=== PATIENT | male | born 1940 | race Caucasian/White ===

== ENCOUNTER → 2017-10-21 07:59 | Outpatient (CLI) | payer MEDICARE, SELFPAY ==
--- NOTE | 2017-10-21 08:02 | CDU_ITS ---
Reason For Study: CAROTID ARTERY DISEASE Rt. Velocities/BP Lt. Velocities/BP Prox CCA 67/15 cm/sec. Prox CCA 114/23 cm/sec. Mid CCA 63/19 cm/sec. Mid CCA 69/20 cm/sec. Dist CCA 63/15 cm/sec. Dist CCA 69/23 cm/sec. Prox ICA 84/32 cm/sec. Prox ICA 66/23 cm/sec. Mid ICA 101/40 cm/sec. Mid ICA 73/27 cm/sec. Dist ICA 56/17 cm/sec. Dist ICA 44/13 cm/sec. Rt. ICA/CCA = 1.6. Lt. ICA/CCA = 1.06. Prox ECA 88/16 cm/sec. Prox ECA 77/16 cm/sec. Rt. Vert. 43/18 cm/sec. Lt. Vert. 51/18 cm/sec. Right Extracranial There is intimal thickening but no significant atherosclerotic plaque noted in the right common carotid artery. The right internal carotid artery is very tortuous. The distal right internal carotid artery is not well visualized. The tortuous nature of the right internal carotid artery may result in flow velocities overestimating the degree of stenosis. There is no significant atherosclerotic plaque noted in the right external carotid artery. Antegrade flow is noted in the right vertebral artery. There is homogeneous, smooth atherosclerotic plaque noted in the right bulb. Left Extracranial There is intimal thickening but no significant atherosclerotic plaque noted in the left common carotid artery. The left internal carotid artery is very tortuous. The distal left internal carotid artery is not well visualized. There is no significant atherosclerotic plaque noted in the left external carotid artery. Antegrade flow is noted in the left vertebral artery. There is heterogeneous, irregular atherosclerotic plaque noted in the left bulb. Procedure Carotid Duplex 66113. Exam performed in department. Interpretation Summary Mild (<50%) stenosis right extracranial internal carotid. Mild (<50%) stenosis left extracranial internal carotid. Flow within the vertebral arteries is antegrade bilaterally. Ordering Physician: Ana Tello Performed By: Kirstie Corbett, [place], RVT
== END ==
PROVIDERS: Family Provider Internal Medicine; PCP Internal Medicine; Visit Provider Internal Medicine
DX: I65.23 Occlusion and stenosis of bilateral carotid arteries (principal)
CPT/HCPCS: 93880

== ENCOUNTER → 2018-05-12 13:01 | Outpatient (CLI) | payer SELFPAY ==
--- NOTE | 2018-05-12 13:06 | CT_ITS ---
HISTORY: Hyperlipidemia. CT chest over-read only for calcium scoring. TECHNIQUE: Helically acquired images were obtained of the chest. CT coronary artery calcium scoring performed. A radiation dose optimization technique was used for this scan. IV Contrast dosage and agent: None. COMPARISON: None FINDINGS: CT coronary artery calcium scoring performed as follows: Left main 81.9 LAD 115 Left circumflex 10.9 Right coronary artery 0 Total calcium score of 208, moderate plaque burden Limited visualization of the lung parenchyma. Lateral segment right middle lobe 5 mm pleural-based nodule or fibronodular scar. More inferiorly, right middle lobe mild pleural-parenchymal scarring. Bilateral lower lobe mild bronchiectasis. Cluster of precarinal lymph nodes including a borderline enlarged left measuring 1 cm in the short axis CT/Limited Chest CT w/CCTA IMPRESSION: 1. Total calcium score of 208 representing moderate coronary artery plaque burden. 2. Right middle lobe 5 mm pleural-based nodule or fibronodular scar. 3. Chronic lung disease with mild bronchiectasis and right middle lobe mild scarring. 4. Borderline enlarged precarinal lymph. 5. Formal CT chest recommended to serve as a baseline for future reference. Individualized dose optimization techniques were used for this CT. at 0707 Reported and signed by: Gautam Hatch MD Electronically Signed: Gautam Hatch, at 7:06 EST Tel , Service support ,
[2018-05-12 13:16] VITALS: BP 111/53; PULSE 63; RESP 16; O2SAT 97; BMI 26.8
--- NOTE | 2018-05-13 10:01 | CA.SCORE ---
Calcium Scoring Date of Study:: 05/12/18 Coronary Calcium Scoring: Calcium score: Left main: 81.9 Left anterior descendin Left circumflex: 10.9 Right coronary artery: 0 Total Agatston Score: 208 Conclusion: The total calcium score (208) is between the 25th and 50th percentile for men over the age of 74. (Exact percentile calculated to be 27%; this means 26% of the population is a lower calcium score and 73% of the population has a higher calcium score than this patient) Impression: Impression: Calcium score of 208 falls between a calcium score 101?400, indicating moderate plaque burden. According to this range, the patient is highly likely to have moderate nonobstructive coronary artery disease. A full evaluation of cardiac risk should include an assessment of all conventional risk factors, and the scores and percentile ranking is reported herein should be evaluated in this context. Recommend clinical correlation or alternative mode of testing if coronary occlusive disease or coronary ischemia is strongly suspected.
== END ==
PROVIDERS: Family Provider Internal Medicine; PCP Internal Medicine; Referring Provider Internal Medicine; Visit Provider Internal Medicine
DX: E78.5 Hyperlipidemia, unspecified (principal)
CPT/HCPCS: 75571; 76380

== ENCOUNTER → 2018-07-29 14:35 | Outpatient (CLI) | payer MEDICARE, SELFPAY ==
[2018-05-12 13:16] VITALS: BMI 26.8
--- NOTE | 2018-07-29 14:40 | RAD_ITS ---
STUDY: X-RAY - LEFT KNEE REASON FOR EXAM: Male, 78 years old. Pain TECHNIQUE: 4 view(s) of the knee. COMPARISON: None. FINDINGS: Normal visualized distal femur. Normal visualized proximal tibia and fibula. Normal proximal tibiofibular articulation. There is mild degenerative arthrosis of the medial femorotibial compartment. Normal lateral femorotibial compartment. There is moderate degenerative arthrosis of the patellofemoral articulation. The soft tissue structures are unremarkable. RAD/Knee 4 or More Views IMPRESSION: Degenerative arthrosis. Electronically Signed: Adarsh Villasenor MD at 15:30 EDT , Service support ,
== END ==
PROVIDERS: Family Provider Internal Medicine; PCP Internal Medicine; Referring Provider Internal Medicine; Visit Provider Internal Medicine
DX: M25.562 Pain in left knee (principal)
CPT/HCPCS: 73564

== ENCOUNTER 2018-08-04 07:51 | Outpatient (RCR) | payer MEDICARE, SELFPAY ==
[2018-05-12 13:16] VITALS: BMI 26.8
--- NOTE | 2018-08-04 08:55 | HP.PTEVAL_ITS ---
Patient's Visit Information CASSIE CHAVIRA is a 78 year old M referred to Physical Therapy by Ana Tello MD with a diagnosis of LEFT KNEE PAIN. Date of Evaluation: 08/04/18 Physical Therapist: Zach Hodges PT, Cert MDT, OCS - Visit Plan Frequency: 1 VISIT Plan: PT EVAL ONLY FOR HEP AND GYM EXERCISES - Subjective Findings: This 78 y/o male presents to physical therapy with left knee pain. Patient has had left knee pain one year intermiitant. Patient had x-rays showed DJD. Patient hseen DR provided MEDS. Symptoms getting better. Aggraveting symptoms with difficulty squatting,stairs,kneeling.Alleviating factors MEDS. Occassionally ,affects sleep. Patient denies parathesia/tingling. Patient symptoms affect ADL'S and housework/job demands. SOCAIL: . VOCATION: retired - Pain Left Knee Pain Intensity (Out of 10): 2 Pain Intensity Range: 10 - Objective POSTURE: WFL. NEURO: intact. PALPATION: superior patella. EDEMA: absent. AROM: 0-145 supine knee flexion. MMT: quads/hams 4/5,hip 4-/5 ,ankle 5/5. FLEXABILITY: hams min tight - Special Tests L Knee Christiano - Meniscus: Negative L Knee Apley - Meniscus: Negative L Knee Disco Test - Meniscus: Negative L Knee Posterior Drawer - PCL: Negative L Knee Posterior Sag - PCL: Negative L Knee Patellar Apprehension - PFS: Positive L Knee Patellar Grind - PFS: Positive - Goals Goal 1:: Patient as providedd with HEP and appropriate exercises in the gym. - Rehabilitation Potential Physical Therapy Diagnosis: This patient has patellafemoral OA with pain with kneeling,dep squats ,catches in open chain postition. Rehabilitation Potential: Good - Anticipated Interventions Patient/Client Instruction: Educate patient on: Condition For the Purpose of:: To decrease pain, To improve muscle performance and motor f unction, To improve ability to perform ADL's, To increase tolerance to activity/condition/position, To improve ability of physical actions for home/community/work/leisure Other: HEP Therapeutic Exercise to Include: Strength training Comment: HEP KNEE For the Purpose of:: To improve muscle performance and motor function, To increase tolerance to activity/condition/position, To improve ability of physical actions for home/community/work/leisure Thank you for the opportunity to evaluate your patient. For Medicare and Medicare HMO plans, please review the plan of care and approve it. It will need to be FAXED BACK to us at [phone] for Medicare purposes. For Medicare only, by signing this I certify the plan of care. Please let me know if there are questions or concerns regarding this plan of care. Physician Signature: Date:
== END 2018-08-04 19:00 | disposition home or self-care (01) ==
LOC: PT 07:51
PROVIDERS: Family Provider Internal Medicine; PCP Internal Medicine; Referring Provider Internal Medicine; Visit Provider Internal Medicine
DX: M25.562 Pain in left knee (principal)
CPT/HCPCS: 97110; 97162

== ENCOUNTER 2020-05-03 09:03 | Outpatient (RCR) | payer MEDICARE, SELFPAY ==
[2018-05-12 13:16] VITALS: BMI 26.8
== END 2020-05-03 23:59 ==
LOC: IMMUN 09:03
PROVIDERS: PCP Internal Medicine; Visit Provider Family Medicine
DX: Z23 Encounter for immunization (principal)
CPT/HCPCS: 0011A; 0012A; 91301

== ENCOUNTER → 2021-02-11 12:57 | Outpatient (CLI) | payer MEDICARE, SELFPAY ==
--- NOTE | 2021-02-11 13:02 | RAD_ITS ---
STUDY: X-RAY BONE SURVEY COMPLETE REASON FOR EXAM: Male, 80 years old. MGUS R/U MYELOMA TECHNIQUE: One view of the pelvis was obtained. 2 views of the cervical spine were obtained. 2 views of the thoracic spine were obtained. 2 views of the lumbar spine were obtained. views of the femur. views of the humerus. : views of the skull were obtained. COMPARISON: None. FINDINGS: CHEST: The lungs are clear and expanded. There is no demonstrated pleural abnormality. Normal size heart. Normal mediastinum and heidi. Normal visualized pulmonary arteries. Normal visualized aortic arch and descending thoracic aorta. Normal visualized thoracic spine. Normal visualized ribs, clavicles, and shoulders. There is no demonstrated abnormality of the visualized soft tissue structures of the upper abdomen. PELVIS: There is a non-specific bowel gas pattern. Normal visualized soft tissue structures. Normal bilateral iliac wings, sacroiliac joints and visualized sacrum. Normal visualized bilateral superior and inferior pubic rami. Normal pubic symphysis. Normal ischial tuberosities. Normal visualized right femoral head. Normal right acetabulum. Normal right hip joint. Normal visualized left femoral head. Normal left acetabulum. Normal left hip joint. CERVICAL SPINE: Normal anterior atlantoaxial articulation. Normal odontoid process. Normal cervical lordosis. There is multi-level endplate spondylosis. There is multi-level degenerative disc disease with multilevel disc space narrowing. Normal visualized intervertebral neuroforamina. The soft tissue structures are unremarkable. THORACIC SPINE: Normal kyphosis of the thoracic spine. There is no substantial scoliosis. There is multilevel endplate spondylosis of the thoracic vertebrae. There is multilevel disc space narrowing of the thoracic spine. The soft tissue structures are unremarkable. LUMBAR SPINE: Normal lumbar lordosis. There is no substantial scoliosis. There is a normal alignment of the vertebrae. There is multilevel endplate spondylosis of the lumbar vertebrae. There is multi-level degenerative disc disease with multi-level disc space narrowing. The soft tissue structures are unremarkable. RIGHT FEMUR: Normal visualized femur. Normal visualized soft tissue structure. LEFT FEMUR: Normal visualized femur. Normal visualized soft tissue structure. RIGHT HUMERUS :Normal visualized humerus. There is no demonstrated fracture or osseous destructive process. There is no demonstrated soft tissue abnormality. LEFT HUMERUS:Normal visualized humerus. There is no demonstrated fracture or osseous destructive process. There is no demonstrated soft tissue abnormality. SKULL: There is no demonstrated soft tissue swelling. Normal osseous calvarium. Normal visualized facial bones. Normal visualized paranasal sinuses. RAD/Bone Survey Comp(Axial&Append) IMPRESSION: No radiographic evidence of multiple myeloma. Electronically Signed: Dawson Kwok MD at 16:33 EST Tel , Service support ,
== END ==
PROVIDERS: PCP Internal Medicine; Referring Provider Internal Medicine Hematology & Oncology; Visit Provider Internal Medicine Hematology & Oncology
DX: D47.2 Monoclonal gammopathy (principal)
CPT/HCPCS: 77075

== ENCOUNTER 2021-04-01 13:00 | Outpatient (RCR) | payer MEDICARE, SELFPAY | END 2021-04-05 23:59 | LOC: DC 13:00 | PROVIDERS: PCP Internal Medicine; Visit Provider Internal Medicine | DX: E11.65 Type 2 diabetes mellitus with hyperglycemia (principal) | CPT/HCPCS: 97802; 97803; G0108 ==

== ENCOUNTER 2021-05-13 08:30 | Outpatient (RCR) | payer MEDICARE, SELFPAY ==
--- NOTE | 2021-05-13 10:00 | BH.SGPN.GN ---
Behaviors/Verbalizations/Mental Status: []Eye contact is fair.Motor activity is appropriate. Appearance is casual and grooming tended to. Speech is Appropriate. Mood is anxious. Affect is constricted. Thoughts are linear and logical. No evidence of psychosis Client Response/Progress/Benefit: []Pt was an semi-engaged participant AEB pt being mostly quiet however appeared attentive and provided input when prompted by therapist. Pt appeared attentive AEB taking notes during psychoeducation about cognitive distortions. Pt benefited from education and increased awareness of cognitive distortions and the role that they play on our behaviors and emotions. Shared with group top three distortions personally uses the most includes: shoulds/must, personalization, and disqualifying the positives. Able to connect impact distortions has on his mental health. Will continue IOP tx to stabilize moods, increase healthy coping, improve daily functioning and prevent decompensation.
--- NOTE | 2021-05-13 10:48 | BH.COMM_ITS ---
Communication Note - Communication with Client Communication Note: Met with patient to complete initial paperwork. No sig nificant change since pre-admission screening. Pt reports ambivalence about starting the program due to anxiety about his personal information being shared. Pt reported feeling better after talking with therapist and reviewing the consent forms. Completed [place] Suicide screening. Pt reports history of fleeting suicidal ideations over the last three years that last a few seconds to minutes, but denies ever having intent to act on these thoughts. Denied active SI, plan, or intent this AM. Denies passive thoughts of this AM and in the last month. No access to weapons. Future oriented and protective factors. No previous attempts. Reviewed case with Dr. Saravia with plan to admit to IOP with dx of MDD F 33.2; rule out bipolar disorder NOS.
--- NOTE | 2021-05-13 11:15 | BH.SGPN.GN ---
Behaviors/Verbalizations/Mental Status: []Client alert and oriented, casually dressed and groomed. Eye contact good. Motor activity appropriate. Speech within normal limits. Affect constricted, mood anxious. Thoughts linear, logical, no signs of hallucinations or delusions. Client Response/Progress/Benefit: []Pt active throughout session, taking notes and contributing examples. Pt was an actively engaged participant in Cognitive Distortions Jeopardy and utilized notes from psychoeducation on cognitive distortions to assist peers in correctly answering questions. Experiential activity was beneficial as it provided a way for pt to review notes and handouts during psychoeducation to answer questions for the game. Pt reflected on today?s topic and wrote his biggest take away from session was ?I can be happy again if I want to be.? Pt was given a thought log to complete for homework. Pt?s first day of IOP tx and he reported anxiety at the beginning of the day, but did well during group. Will continue in IOP tx to prevent decompensation, establish a medication regime, and improve daily functioning. Narrative Note: []
--- NOTE | 2021-05-15 09:02 | BH.SGPN.GN ---
Behaviors/Verbalizations/Mental Status: []Client alert and oriented, neatly dressed and groomed. Eye contact good. Motor activity appropriate. Speech within normal limits. Affect constricted, mood anxious. Thoughts linear, logical, no signs of hallucinations or delusions. Reviewed client?s symptom tracker, no risk for suicidal ideation, plan, or intent as of 05/15/21 Client Response/Progress/Benefit: C[]Client responded well to session, listening to peers and receptive to feedback. Client's first week of IOP tx and he reports that he was hesitant and anxious at first, but he feels more hopeful now about the program. Client reports feeling content this morning and shared that getting here was a significant mental health win. Client shared after his first day of IOP tx he went home and watched videos on the mind-body connection which was insightful. Client identified his treatments in IOP to be reducing ruminations and helping client live in the present moment. Appeared to benefit from connecting with peers and normalizing anxiety about the program. Will continue IOP tx to prevent decompensation, gain healthy coping skills, and for medication management. Narrative Note: []
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
[2021-05-15 11:21] VITALS: BP 150/71; PULSE 75
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
--- NOTE | 2021-05-15 12:55 | BH.DR.ITP ---
Initial Treatment Plan Patient Information Visit Information: ADMISSION DATE: EXPECTED LOS: 4-6 weeks Problems/Symptoms Problem #1:: Mood instability Symptom:: Depression, sadness, anhedonia, biological disruption of sleep in recent past, low energy, guilt, recent passive suicidal ideation and passive thoughts of , impulsivity, grandiosity, Problem #2:: Anxiety Symptom:: Worry, rumination, history of panic attacks
--- NOTE | 2021-05-15 13:00 | BH.MDN ---
Multi-Disciplinary Note - Note 30-min Individual Time Started:: 11:30 Date: 05/15/21 Purpose of session/treatment goals addressed:: Reviewed current symptoms and progress in IOP. Began to work on treatment plan and goals. Eye Contact:: Fair Motor Activity:: Appropriate Appearance:: Neat Speech:: Soft Mood:: Depressed Affect:: Flat Thoughts:: Linear, Logical, No evidence of hallucinations/delusions noted Staff Interventions:: psychoeducation on: - Connection between thoughts, emotions, and behaviors., rapport building, treatment planning, goal setting Client Response:: Met with patient to introduce self and role. We also discussed goals for IOP and his initial thoughts on group counseling and IOP overall. Pt had several questions regarding his dx of Bipolar and current treatments to help with depression. He mentions guilt, ruminations, and negative thoughts which are primary contributors to his depression. He regrets previous decisions (most likely when manic) which have negatively impacted his and family. His depression worsened this past year which led to seeking medications. Was prescribed an anti-depressant which led to a manic episode. He is very resistant to medications however at the encouragement of his and PCP he started Seroquel. I need to take this medication. Admits that this meds keeps him form having high energy however insight that he was not making the best decision when hypomanic or manic. He is early in learning about the diagnosis of Bipolar and there appears to be some stigma associated with this. He asks how to stop negative thoughts. He appears motivated and discussed how this impacts him daily. He was open to education on CBT techniques and appears to connect with the concrete notion of Thoughts impacting emotions and behaviors. Risks/Concerns:: No risk or concerns noted. Denies SI, plan, or intent. Progress Toward Goals/Plan:: Limited progress as this is pt's 2nd day in IOP. He reports that he has learned some from the groups but admits that he prefers individual sessions. States that he trust our psychiatrist and staff. Some reservations as other group members are way younger than me. We discussed if at any time he feels that IOP is not beneficial we can discuss other options. He states numerous times that he wants to continue. Will continue in IOP to prevent decompensation, increase healthy coping skills, and to stabilize mood. Time Stopped:: 12:05
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
--- NOTE | 2021-05-17 10:19 | BH.MTP_ITS ---
Master Treatment Plan - Patient Information Program Physician:: Tricia Saravia Primary Therapist:: Jean Claude Harris [facility] - Psychiatric Diagnoses Psychiatric Diagnoses:: 1. Bipolar 1 disorder, most recent episode depressed, severe without psychosis (resolving). 2. Generalized anxiety disorder Diagnosis Code(s):: f31.4, f41.1 - Estimated LOS Estimated LOS (in weeks):: 5 Problem/Goal #1 - Problem/Goal #1 Stated Goal:: Client will increase mood stability and reduce depression due to Bipolar AEB by reduction of scores on the karolina and depressive domains of the DSM-5 cross-cutting scales Description of Barriers: Mental health stigma, limited knowledge of Bipolar and mental health, hx of non-compliance with medications, poor motivation for mental health treatment. Functional Impact: Series of manic/hypomanic episodes in the past have significantly impacted relationship with family and finances. - Objectives Objective #1 Stated Objective: Client will increase self-awareness of bipolar disorder by identifying 2-3 warning signs and triggers to both manic and depressive episodes and self-report increased awareness of symptoms of Bipolar, karolina, depression, and hypomania. Interventions: Through individual and group counseling will provide education on Bipolar, illness management skills (e.g., early warning signs, common triggers, coping strategies), problem solving focused on life foals, and a personal care plan that emphasizes a regular sleep routine, comply with medications, and ways to minimize relapse through stress regulations. Discharge Criteria: Will be able to identify 2-3 warning signs to karolina or depressive episodes and self-reported increase knowledge of what constitutes Bipolar. Target Date: 06/17/21 Review Date: 06/12/21 Objective #2 Stated Objective: Client will learn and utilize 2-3 healthy coping strategies to better manage depressive and mood symptoms as shown by reduced DSM-5 scores. Interventions: Through individual and group counseling will teach client various coping skills to manage symptoms and give tangible resources to use to regulate emotions. Therapist will use cognitive restructuring techniques and help client gain awareness of negative thoughts that reinforce depressive cycles. Discharge Criteria: Will be able to identify and consistently use 2-3 healthy coping skills for mood management. Target Date: 06/17/21 Review Date: 06/12/21 Problem/Goal #2 - Problem/Goal #2 Stated Goal:: Client will reduce overall frequency, intensity, and duration of anxiety to improve functioning AEB reduction of scores on the anxiety domain (DSM-5 cross cutting scales) Description of Barriers: Mental health stigma, limited knowledge of mental health, hx of non-compliance with medications, poor motivation for mental health treatment, limited support. Functional Impact: Pt reports excessive ruminations and guilt regarding past decisions that impacted him and his family. - Objectives Objective #1 Stated Objective: Client will learn and implement 2-3 calming skills to reduce overall anxiety and manage anxiety Interventions: Through individual and group counseling will teach the client calming/relaxation skills (e.g., muscle relaxation, mindful breathing) and how to discriminate better between relaxation and tension; teach the client how to apply these skills to his/her daily life. Discharge Criteria: Able to identify and consistently utilize 2-3 calming skills for anxiety AEB by self-reports and reduction of scores on anxiety domain Target Date: 06/17/21 Review Date: 06/12/21
--- NOTE | 2021-05-21 09:10 | BH.SGPN.GN ---
Behaviors/Verbalizations/Mental Status: [] Eye contact is good. Motor activity is appropriate. Appearance is casual. Speech is Appropriate. Mood is depressed. Affect is flat. Thoughts are linear and logical. No evidence of psychosis. Reviewed daily check in sheet and no reports of suicidal ideations or intent. Client Response/Progress/Benefit: [] Pt participated when prompted. Attentive. Daily symptom tracker notes 2/5 for depression, anxiety, and anger. Mental health win include I started exercising again. He shared the benefits this had in the past and some of the reasons that he quit (depression). He shared the connection between mental health and physical health. He talked about how some recent education on the connection between events, thoughts, feelings, and actions has helped him focus more on reframing and addressing thoughts. Also he has been researching his diagnosis to gain more clarity. Progress noted. Benefited from group support, encouragement, and feedback. Will continue in IOP to prevent decompensation, stabilize mood, and improve functioning. Narrative Note: []
--- NOTE | 2021-05-21 10:15 | BH.SGPN.GN ---
Behaviors/Verbalizations/Mental Status: []Client alert and oriented, casually dressed and groomed. Eye contact fair. Motor activity appropriate. Speech within normal limits. Affect congruent, mood euthymic. Thoughts linear, logical, no signs of hallucinations or delusions Client Response/Progress/Benefit: []Client was an engaged participant AEB providing input to discussion and taking notes throughout. Connected with group topic of perspective and the impacts of one?s perspective on mental health. Client worked with the group to identify impact of a negative perspective. Client appeared to benefit from increasing understanding of mental health benefits of a positive perspective. Client stated he used to have a negative perspective and now is moving towards a more positive perspective about treatment. Pt stated sticking to treatment and watching informational videos has helped challenge his perspective. Progress noted as client appears to be increasing engagement with group discussions. Will continue IOP tx to stabilize moods, increase healthy coping skills, and prevent decompensation.
--- NOTE | 2021-05-22 08:40 | BH.MDN ---
Multi-Disciplinary Note - Note 45-min Individual Time Started:: 11:15 Date: 05/21/21 Purpose of session/treatment goals addressed:: Review progress and symptoms. Treatment planning. Education. Eye Contact:: Good Motor Activity:: Appropriate Appearance:: Casual Speech:: Soft Mood:: Anxious Affect:: Congruent Thoughts:: Linear, Logical, No evidence of hallucinations/delusions noted Staff Interventions:: psychoeducation on: - Bipolar vs Bipolar 2, CBT techniques, rapport building, goal setting - interested in education on Bipolar and mental illness. Client Response:: Pt requested to speak with therapist today. He reports that he has been thinking about things and watching videos since last week. He discussed a timeline of his depressive and anxiety episodes starting in the . His rumination and depressive thoughts are correlated with bad business and life decisions. 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 He feels very guilty about this. Most recent bad business decision was in 2019 and what ultimately led to seeking help and getting prescribed Zoloft. He keeps saying there is nothing I can do about this so I shouldn't feel depressed. Insight that his karolina and Bipolar did impact his decision making. He is struggling with understanding and accepting emotions. He has resumed exercise which he believes will help his mental health. Risks/Concerns:: No risks or concerns noted. Progress Toward Goals/Plan:: Progress noted per pt. Medication compliant. Increased insight and awareness on Bipolar and mental health. Reports that he does gather information from peers in group. Consistent and engaged in group. Researching and gaining information outside of IOP. Pt reports that his depression has improved since starting IOP. Decreased guilt for previous actions. Will continue in IOP to stablize mood, prevent decompensation, and increase healthy coping. Pt is a very concrete and wants to be finished with IOP in 4 weeks. He requested plan to meet with this therapist weekly and psychiatrist weekly as he finds the mixture of group, individual, and psych as helpful. Time Stopped:: 12:00
--- NOTE | 2021-05-22 09:00 | BH.SGPN.GN ---
Behaviors/Verbalizations/Mental Status: []Client alert and oriented, casually dressed and groomed. Eye contact good. Motor activity appropriate. Speech within normal limits, soft. Affect congruent and bright, mood euthymic. Thoughts linear, logical, no signs of hallucinations or delusions. Reviewed client?s symptom tracker, no risk for suicidal ideation, plan, or intent as of 05/22/21 Client Response/Progress/Benefit: []Client responded well to session, willing to share and actively listening throughout. Client reports feeling level this morning, which he attributes to getting back into a consistent morning routine, scheduling exercise earlier in the day to encourage him to get out of bed, as well as focusing more on positives. Client discussed the significance positive thinking has had in improving his overall mood and discussed goals to maintain the gains he has made. Identified continued maintenance as his only stressor at this time. Shared plans to maintain positive mindset by listening to positive media throughout the day. Client progress noted in improved mood and reported skill application. Will continue IOP tx to prevent decompensation, continue to improve consistency in routine and medication compliance, as well as increase mood stability. Narrative Note: []
--- NOTE | 2021-05-22 10:10 | BH.SGPN.GN ---
Behaviors/Verbalizations/Mental Status: []Client alert and oriented, casually dressed and groomed. Eye contact good. Motor activity appropriate. Speech within normal limits. Affect congruent, mood euthymic. Thoughts linear, logical, no signs of hallucinations or delusions. Client Response/Progress/Benefit: []Client responded well to session, listening to others and sharing. Client was a passive participant in group discussion defining taking action and identifying barriers, taking notes and nodding throughout. 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 Appeared to benefit from increased self-awareness and knowledge regarding examples and barriers to taking action. Will continue IOP treatment to increase healthy coping skills and decrease rumination to improve everyday functioning. Narrative Note: []
--- NOTE | 2021-05-22 11:15 | BH.SGPN.GN ---
Behaviors/Verbalizations/Mental Status: []Client alert and oriented, casually dressed and groomed. Eye contact good. Motor activity appropriate. Speech within normal limits. Affect congruent, mood euthymic. Thoughts linear, logical, no signs of hallucinations or delusions. Client Response/Progress/Benefit: []Client responded well to session, taking notes and participating in worksheet discussion. Client identified he wants to take action on decreasing impulsive decisions. Client stated his goal is to analyze his thought before acting on it. Identified using positive self talk as supports that can help him accomplish this goal. Appeared to benefit from identifying a small goal to benefit mental health. Client to continue IOP to stabilize moods, increase healthy coping skills, increase understanding about bipolar disorder and prevent decompensation.
--- NOTE | 2021-05-22 12:17 | PCM.BH.PN ---
Progress Note Progress Note: And history of Present Illness/Interim History: [] The patient is an 81-year-old Russian male who is seen in follow-up at the [facility] behavioral health IOP program where he has been treated for bipolar depression. I last saw the patient 1 week ago and at that time he was encouraged to increase his Seroquel dose to 50 mg at bedtime every day. He is tolerating medication well and has been compliant with the dose every evening. He states that he feels much better. He feels that his mood is more stable and less depressed. He is states that he is starting to come to terms with the fact that he may have a mood disorder and is interested in learning more about this. He has begun to start walking every day which has helped him in the past avoid depression. His sleep is good especially with the increased dose of Seroquel. His energy level is okay during the day. He denies any passive thoughts of , suicidal ideation, plan for suicide, homicidal ideation, hallucinations or delusions. He denies any symptoms of karolina. Current Psychiatric Medications: [] Seroquel 50 mg p.o. nightly (x1 week now). Mental Status Examination: [] The patient is an 81-year-old male who appears normal or better than stated age and is casually dressed and groomed with good hygiene. He is seen wearing a mask due to the pandemic and has no psychomotor agitation or retardation. Eye contact is good and speech is normal rate and rhythm and fluent with no pressure. He is ambulatory with a normal gait. His history is much more coherent and on point today. Mood is mildly depressed. Affect is constricted. Thought process is goal-directed and organized. Thought content: There is no evidence of passive thoughts of , suicidal ideation, plan for suicide, homicidal ideation, hallucinations, delusions or symptoms of karolina. The patient is looking forward to learning how to manage his mood disorder. Judgment is intact. Insight is fair. Impulsivity is mild to moderate. Diagnoses: [] 1. Bipolar 1 disorder, most recent episode depressed, severe without psychosis (resolving) 2. Generalized anxiety disorder 3. Jail, financial and primary support issues Plan: [] The patient will continue the IOP program at [facility] as the structure, support, education and group therapy will hopefully prevent worsening of the patient's symptoms. He felt safe during the interview and he agrees that if at anytime he does not feel safe he will let us know or go to the emergency room. The risks, options, possible complications and side effects of the medications were again discussed with the patient and he understands and accepts these. He will continue his current dose of Seroquel every night. He agrees to keep regular sleep-wake hours, eat healthfully and exercise by walking regularly. He understands that minimizing stress will also help him manage his mood disorder. Book recommendations were discussed with the patient. He'll continue to follow-up with his outpatient providers and I will see the patient in follow-up in 2 weeks.
--- NOTE | 2021-05-28 11:27 | BH.COMM ---
Communication Note - Communication with Client Communication Note: cancelled today due to scheduling conflict.
--- NOTE | 2021-05-29 10:06 | BH.SGPN.GN ---
Behaviors/Verbalizations/Mental Status: []Client alert and oriented, casually dressed and groomed. Eye contact good. Motor activity appropriate. Speech within normal limits. Affect congruent, mood euthymic. Thoughts linear, logical, no signs of hallucinations or delusions. Client Response/Progress/Benefit: []Client responded well to session AEB listening attentively to others. Client was engaged throughout group discussion of the impacts and consequences of unmanaged anger, as well as the benefits of anger. Client reported outward personal signs of anger as blaming others, yelling, and cussing. Identified underlying emotions that contribute to anger including anxiety and stress. Appeared to benefit from increased knowledge of anger as a secondary emotion and increased self-awareness of signs and emotions that contribute to anger. Will continue IOP treatment to continue increasing anxiety management skills and decrease rumination to increase overall functioning. Narrative Note: []
--- NOTE | 2021-05-29 11:05 | BH.SGPN.GN ---
Behaviors/Verbalizations/Mental Status: []Client alert and oriented, neatly dressed and groomed. Eye contact good. Motor activity appropriate. Speech within normal limits-soft. Affect constricted, mood euthymic. Thoughts linear, logical, no signs of hallucinations or delusions. Client Response/Progress/Benefit: []Pt was engaged throughout AEB participating in discussion and taking notes. Pt experienced slight anxiety during the activity and did well to participate and work through those emotions. Contributed as group brainstormed healthy coping skills for better managing anger which included: deep breathing, counting, exercise, DDD, and looking at the consequences of responding in anger. Pt appeared to benefit from identifying different techniques to manage anger as well as gaining awareness of the costs of anger. Pt reported when their anger is unmanaged, pt blames others, cusses, and yells. Pt selected praying to better manage anger. Will continue IOP tx to monitor medications, increase healthy coping skills, and promote mood stability. Narrative Note: []
--- NOTE | 2021-05-29 11:36 | BH.COMM_ITS ---
Communication Note - Communication with Client Communication Note: Discussed with Dr. Saravia client's request for PRN me dication to help with anxiety if needed. Dr. Saravia gave verbal order for Hydroxyzine 25mg up to three times daily PRN. Discussed medication with client and discussed possible side effect of drowsiness and that he should not drive until he sees how the medication effects him. Client denies other questions. Medication called in to [facility] in [place] per client's request.
--- NOTE | 2021-05-29 14:43 | BH.MDN_ITS ---
Multi-Disciplinary Note - Note 45-min Individual Time Started:: 09:05 Date: 05/29/21 Eye Contact:: Good Motor Activity:: Appropriate Appearance:: Casual Speech:: Appropriate Mood:: Anxious Affect:: Congruent Thoughts:: Linear, Logical, No evidence of hallucinations/delusions noted Staff Interventions:: thought challenging, psychoeducation on: - thought reframing, affirmations, CBT techniques, mindfulness skills, taught coping skills Client Response:: Pt was focused on his anxiety during the session today. Reports that his anxiety fluctuates throughout the day. Was able to identify anxiety provoking thoughts which are primarily based around poor decisions he has made in the past. Why did I trust the wrong people ? Why did they betray me ? 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 Guilt, regret, and embarrassment over past poor financial investment decisions which impacted the family. Pt's family has told him numerous times that they don't harbor any anger towards him, however continues to report he cannot stop ruminating. He has tried breathing exercises, distraction, other external skills however still has the thoughts. Open to discussion on internal coping skills. We identified and discussed acceptance of decisions and of the inability to change the past. Accepting that having regrets, anxiety, or depression over the past is normal. Affirmations to help with acceptance. Reframing thoughts to the present and what can I do to help myself and family today. Responded well to interventions,. Risks/Concerns:: no risks or concerns noted. Progress Toward Goals/Plan:: Progress noted. Medication compliant. Reports the meds help and I have no side effects. Increased skills ( mainly external) and reports benefits from psychoeducation and counseling. Very rigid and absolute thinking regarding mental health. Sees any anxiety and depression as being a failure I shouldn't feel this way and tried to push distressful thoughts out by force, which often makes these thoughts more intense therefore adding to distress. Introduced accepting, reframing, and other internal skills to compliment his external skills (breathing, mediation, exercise). He did read sections of book on Bipolar and we continue to have discussion regarding this diagnosis and stigma. Plan is to continue in IOP to maintain gains and prevent decompensation. Time Stopped:: 09:55
--- NOTE | 2021-05-30 09:00 | BH.SGPN.GN ---
Behaviors/Verbalizations/Mental Status: []Eye contact is good. Motor activity is appropriate. Appearance is casual. Speech is appropriate. Mood is euthymic, positive. Affect is congruent. Thoughts are linear and logical. No evidence of psychosis. Reviewed daily symptom tracker sheet with no reports of suicidal ideations, plan, or intent. Client Response/Progress/Benefit: []Client was engaged AEB pt openly sharing thoughts and feelings and appeared attentive to others. Client reported mental health win as feeling more happy lately. Client stated he is able to notice positives in his day more often. Client reported he is happy to be in IOP because at first didn't want to do the program but now sees the benefit and wants to keep coming. Feels able to manage daily stressors more effectively. Client seemed to benefit from support from peers. Will continue IOP treatment to continue use of healthy skills, stabilize moods and prevent decompensation. Narrative Note: []
--- NOTE | 2021-05-30 10:10 | BH.SGPN.GN ---
Behaviors/Verbalizations/Mental Status: [] Eye contact is good. Motor activity is appropriate. Appearance is casual. Speech is Appropriate. Mood is anxious. Affect is flat. Thoughts are linear and logical. No evidence of psychosis. Client Response/Progress/Benefit: [] Pt did not participate in discussion, however did participate in activity. Attentive during group discussions and psychoeducation on the 4 stages of change. Benefited from increased insight and awareness of obstacles to change, common emotions associated with change, and the stages of change. Will continue in IOP to prevent decompensation, stabilize mood, and increase health coping skills. Narrative Note: []
--- NOTE | 2021-05-30 11:15 | BH.SGPN.GN ---
Behaviors/Verbalizations/Mental Status: []Client alert and oriented, neatly dressed and groomed. Eye contact good. Motor activity appropriate. Speech within normal limits. Affect congruent, mood euthymic. Thoughts linear, logical, no signs of hallucinations or delusions. Client Response/Progress/Benefit: []Client responded well to session, attentive. Did well to process activity and work with group to relate the strategies used to overcome barriers in the activity to managing change in own life. Client identified a change they would like to make as increasing exercising and reducing anxiety. Client reports barriers to change as lack of consistency and motivation. Client set a goal of practicing guided imagery to reduce anxiety which will help client increase motivation. Appeared to benefit from identifying a small goal to work towards. Client will continue IOP tx to reduce negative thinking patterns, improve self-care, and promote mood stability. Narrative Note: []
== END 2021-06-03 23:59 ==
LOC: BHIOP 08:30
PROVIDERS: PCP Internal Medicine; Referring Provider Psychiatry & Neurology Psychiatry; Visit Provider Psychiatry & Neurology Psychiatry
DX: F31.4 Bipolar disorder, current episode depressed, severe, without psychotic features (principal); E11.9 Type 2 diabetes mellitus without complications; F41.8 Other specified anxiety disorders; Z79.899 Other long term (current) drug therapy; Z79.84 Long term (current) use of oral hypoglycemic drugs; Z79.82 Long term (current) use of aspirin
CPT/HCPCS: S9480; 90834; 90853

== ENCOUNTER 2021-06-04 07:56 | Outpatient (RCR) | payer MEDICARE, SELFPAY ==
[2021-06-04 00:40] VITALS: BP 150/71; PULSE 75
--- NOTE | 2021-06-04 09:05 | BH.SGPN.GN ---
Behaviors/Verbalizations/Mental Status: [] Eye contact is good. Motor activity is appropriate. Appearance is casual. Speech is Appropriate. Mood is euthymic. Affect is full. Thoughts are linear and logical. No evidence of psychosis. Reviewed daily check in sheet and no reports of suicidal ideations or intent. Client Response/Progress/Benefit: [] Pt participated when prompted. Attentive. Daily symptom tracker notes 04/10 for depression and anxiety.Emotion for today is feeling good. Mental health wins include I'm accepting things. Shared the difficulties of stigma associated with mental health it was hard for me to accept. Feels motivated and is seeking purpose through activities in his daily life. Progress noted per pt report. Benefited from group support and encouragement. Will continue in IOP to maintain gains and stablize mood. Narrative Note: []
--- NOTE | 2021-06-04 10:05 | BH.SGPN.GN ---
Behaviors/Verbalizations/Mental Status: []Eye contact is good. Motor activity is appropriate. Appearance is casual. Speech is Appropriate, limited input provided. Mood is euthymic. Affect is constricted. Thoughts are linear and logical. No evidence of psychosis. Client Response/Progress/Benefit: [] Pt was an attentive though passive participant in group discussion AEB taking notes and nodding throughout. Attentive during psychoeducation reviewing internal and external obstacles and nodding in connection to examples throughout. Participated in the reflection activity in which clients muna pictures depicting their current and desired reality and shared with the group. Pt however declined to shared his pictures with the group. Appears to benefit from treatment materials but remains a mostly passive participant in group activities and discussion. Pt to continue IOP to improve mood stability and healthy decision making, continue to promote emotion regulation skills, as well as prevent decompensation. Narrative Note: []
--- NOTE | 2021-06-04 14:18 | BH.MDN ---
Multi-Disciplinary Note - Note 45-min Individual Time Started:: 11:05 Date: 06/04/21 Purpose of session/treatment goals addressed:: Reviewed progress and current symptoms. Addressed Treatment goal 2 (identifying calming strategies for anxiety) Eye Contact:: Good Motor Activity:: Appropriate Appearance:: Casual Speech:: Soft Mood:: Euthymic Affect:: Full Thoughts:: Linear, Logical, No evidence of hallucinations/delusions noted Staff Interventions:: mindfulness skills Client Response:: Pt reports that his anxiety has decreased since last week. Reports that he is utilizing both internal and external coping skills learned in individual and group counseling. He believes that he is more focused on the present and future rather than ruminating on the past. Mentions that he is better at accepting. He continues to blame himself for past mistakes however not as much. Only had to utilize PRN on 3 occasions since week. Appears to be utilizing thoughts reframing, affirmations, and through challenging skills discussed in previous individual session. Worked on identifying calming strategies that he can utilize when he notices intrusive thoughts that cause anxiety and depression. Therapist walked him through 5 senses which he found helpful. We also discussed some strategies to use at night prior to going to sleep which he reports is toughest. Therapist showed him some phone apps that can help calm and distract. We also had further discussions and education on Bipolar and mental health stigma. Risks/Concerns:: no risks or concerns noted. Progress Toward Goals/Plan:: Progress noted per pt report. Medication compliant. Believes that medications are effective. Decreased anxiety this past week per self-report. He believes that he is getting significant insight and support from [facility]. I actually look forward to coming. He is a quiet group member however is attentive and is absorbing the information AEB asking clarifying questions in individual sessions. He continues to blame himself for recent struggles. Cognitive distortions such as absolute thinking and Shoulding are frequently observed. Does well when challenged on his thinking. Decreased stigma associated with Bipolar dx. Learning calming and coping skills for negative thoughts, increased knowledge of Bipolar symptoms, and consistent attendance. Next week is 4 week treatment review and treatment team will discuss progress and determine d/c date. Time Stopped:: 11:50
--- NOTE | 2021-06-05 09:00 | BH.SGPN.GN ---
Behaviors/Verbalizations/Mental Status: []Eye contact is good. Motor activity is appropriate. Appearance is casual. Speech is soft. Mood is calm. Affect is congruent. Thoughts are linear and logical. No evidence of psychosis. Reviewed daily check in sheet and no SI indicated. Client Response/Progress/Benefit: P[]Pt responded well to session, attentive and engaged. Pt reports feeling good this morning and shared IOP has really been helping pt get back to functioning. Pt shared he has been walking more which pt used to do on a daily basis. Pt also has been practicing mindfulness and acceptance of the things he cannot control and stressors from his past. Pt states focusing on the present has reduced his ruminating. Pt denied any stressors for today and appeared to benefit from reflecting on personal growth. Pt will continue IOP tx to promote gains, further improve daily functioning, and increase self-care. Narrative Note: []
--- NOTE | 2021-06-05 10:05 | BH.SGPN.GN ---
Behaviors/Verbalizations/Mental Status: []Client alert and oriented, casually dressed and groomed. Eye contact good. Motor activity appropriate. Speech within normal limits. Affect congruent, mood euthymic. Thoughts linear, logical, no signs of hallucinations or delusions. Client Response/Progress/Benefit: []Client responded well to session AEB listening attentively to others and taking notes. Client was attentive throughout group discussion of the benefits of healthy relationships and factors that contribute to relationships becoming unhealthy. Client took notes and nodded throughout, appearing to benefits from the group environment. Client participated in experiential activity modeling healthy relationship behaviors, supporting and problems solving with group members. Appeared to benefit from increased knowledge of the benefits of healthy relationships and characteristics of unhealthy relationships. Will continue IOP treatment to continue increasing application of healthy coping skills and decrease rumination to improve daily functioning. Narrative Note: []
--- NOTE | 2021-06-05 11:13 | BH.SGPN.GN ---
Behaviors/Verbalizations/Mental Status: [] Client alert and oriented, casually dressed and groomed. Eye contact good. Motor activity appropriate. Speech within normal limits. Affect congruent, mood euthymic and positive. Thoughts linear, logical, no signs of hallucinations or delusions. Client Response/Progress/Benefit: [] Client responded well to session, engaged and taking notes. Attentive during psychoeducation about characteristics of healthy, unhealthy, and abusive relationships. Able to identify relationship strengths. Client reported he wants to continue working on using respectful language to the people in his life. Client stated working on communication is a daily task. Able to see how improved communication can improve relationships. Appeared to benefit from reflecting upon personal relationship strengths, as well as brainstorming strategies to build healthier relationships. Pt recommended to continue IOP to maintain gains, challenge distorted thoughts and prevent decompensation.
--- NOTE | 2021-06-05 12:09 | PCM.BH.PN ---
Progress Note Progress Note: In the history of Present Illness/Interim History: [] The patient is an 81-year-old male who is seen in follow-up at the [facility] IOP program where he is being treated for bipolar depression. I last saw the patient 2 weeks ago and last week hydroxyzine as needed was added for increases in anxiety or panic attacks. Patient states that he only takes the hydroxyzine once in a great while as he does not need it usually. He feels much better overall and his mood feels very even keeled lately. He does get a little down off and on at times but he is able to use the skills he is learning in the IOP program to manage his occasional down moments. He has been walking for exercise now and this is also helped him. He discussed the fact that he often feels that he let his family down. Long discussion was had about the fact that he understands that he did the best he could and the fact that there is no perfect or father. The patient sleep is good and energy level is good. He denies any passive thoughts of , suicidal ideation, plan for suicide, homicidal ideation, hallucinations or delusions. He denies any symptoms of karolina. Current Psychiatric Medications: [] Seroquel 50 mg p.o. nightly (x3 or 4 weeks now); Vistaril 25 mg, one p.o. as needed for panic attack?rare use. Mental Status Examination: [] Patient is an 81-year-old male who appears younger than stated age and is casually dressed and groomed with good hygiene. He is ambulatory with a normal gait. He is seen wearing a mask part of the interview due to the pandemic and has no psychomotor agitation or retardation. Eye contact is good and speech is normal rate and rhythm and fluent with no pressure. Mood is euthymic. Affect is full and normal. Thought process is goal-directed and organized. Thought content: The patient is hopeful for the future and. There is no evidence of passive thoughts of , suicidal ideation, plan for suicide, homicidal ideation, hallucinations, delusions or symptoms of karolina. Judgment is intact. Insight is good. Impulsivity is low. Diagnoses: [] One. Bipolar one disorder, most recent episode depressed, severe without psychosis (resolving) Two. Generalized anxiety disorder Three. Correction, financial and primary support issues Plan: [] The patient will continue the IOP program at [facility] as the structure, support, education and group therapy will hopefully prevent worsening of the patient's symptoms. He felt safe during the interview and if it anytime he does not feel safe he agrees to let us know or go to the emergency room. The risks, options, possible complications and side effects of the medications were again discussed with the patient and he understands and accepts these. No medication changes were made today. He will continue to keep regular sleep-wake hours, eat healthily and exercise by walking regularly. He will continue to follow-up with his outpatient medical and psychiatric providers.
--- NOTE | 2021-06-11 09:06 | BH.SGPN.GN ---
Behaviors/Verbalizations/Mental Status: [] Client alert and oriented, casually dressed and groomed. Eye contact good. Motor activity appropriate. Speech within normal limits. Affect congruent, mood euthymic. Thoughts linear, logical, no signs of hallucinations or delusions. Reviewed client?s symptom tracker, no risk for suicidal ideation, plan, or intent as of 06/11/21 Client Response/Progress/Benefit: [] Client responded well to session, attentive and openly discussed with group. Client reports feeling stable this morning as he has been continuing to make progress in his ability to engage in small self-care goals as well as regularly challenge intrusive thoughts. Client shared he is reminding himself ?I have control of my mind? when his negative thoughts pop-up. Shared continuing with a regular morning exercise routine has been a positive as well. Client shared that his only stressor is wanting to maintain these gains, but feels confident in his overall ability to do so. Appeared to benefit from reflecting on his progress, as well as support from the group. Client will continue IOP tx to continue to promote mood stability, improve consistent skill application, and prevent decompensation. Narrative Note: []
--- NOTE | 2021-06-11 10:10 | BH.SGPN.GN ---
Behaviors/Verbalizations/Mental Status: []Client alert and oriented, casually dressed and groomed. Eye contact good. Motor activity appropriate. Speech within normal limits. Affect congruent, mood euthymic. Thoughts linear, logical, no signs of hallucinations or delusions. Client Response/Progress/Benefit: []Client responded well to session AEB listening attentively throughout. Client was engaged and took notes throughout group discussion defining boundaries and their importance. Clinician provided psychoeducation on types of boundaries, including physical, material, and emotional. Client was attentive as group members shared personal examples of boundaries. Appeared to benefit from increased knowledge of types of boundaries and self- awareness. Will continue IOP treatment to continue increasing application of healthy coping skills and decrease rumination to improve overall functioning. Narrative Note: []
--- NOTE | 2021-06-11 13:30 | BH.MDN ---
Multi-Disciplinary Note - Note 60-min Individual Time Started:: 11:00 Date: 06/11/21 Purpose of session/treatment goals addressed:: Reviewed current symptoms and progress. Addressed all treatment plan goals. Eye Contact:: Good Motor Activity:: Appropriate Appearance:: Casual Speech:: Appropriate Mood:: Euthymic Affect:: Full Thoughts:: Linear, Logical, No evidence of hallucinations/delusions noted Staff Interventions:: other - reviewed progress on treatment plan goals. Client Response:: Pt was given DSM-5 outcomes scores however did not complete stating I want to take it home and complete. Today would be his 4th week in [facility] so we reviewed progress on goals. Pt was able to identify 3 warning signs to karolina which he reported were; being super focused, very high energy, very high self-esteem, and poor sleep. Insight on actions to take if he identifies warning signs call me doctor, talk to support, and make sure I don't have access to finances. Identified 2 healthy coping strategies for depression which included; distraction and change my thoughts by analyzing them He discussed reframing and challenging skills. Able to also identify several calming skills for anxiety including affirmations, mindfulness, breathing, and acceptance. Overall her reports increased awareness and education on Bipolar symptoms and warning signs. Reports overall improved mood stability. Medication compliant. Risks/Concerns:: no risks or concerns noted. Progress Toward Goals/Plan:: Progress noted per pt report. Consistent attendance. While quiet in group he appears attentive AEB by note taking and discussions in individual sessions. Self reports decreased anxiety, depression, and improved mood. Reports decreased ruminations on past failures and impulsive decision-making. Continue in have guilt and regret, however per report has learned to accept these and focus on the present/future. He has set boundaries with people who he has identified as unhealthy. Has completed current treatment plan goals mentioned above. Treatment Plan review with team is tomorrow with expectation to discharge later this week. He originally declined following up with therapist after discharge however currently is more open to this. Will give him referrals to local mental health providers. Time Stopped:: 12:00
--- NOTE | 2021-06-12 11:45 | BH.MTP_ITS ---
Treatment Plan Review Date of Admission:: 05/13/21 Date of Treatment Plan Review:: 06/12/21 Admitting Diagnoses:: F31.4, Bipolar 1, depressed Current Diagnoses:: F31.4, Bipolar 1, depressed Patient's Response to Treatment:: Patient has responded well to treatment. Pt consistently attended the program. While quiet in groups he appeared attentive AEB by note taking and discussions in individual sessions of group topics. Self reports decreased anxiety, depression, and improved mood. Reports decreased ruminations on past failures and impulsive decision-making. Continues to have guilt and regret, however per report has learned to accept these and focus on the present/future. He has set boundaries with people who he has identified as unhealthy. Status of Current Problems and Symptoms: According to DSM-5 outcomes pt showed a 10% decrease in overall symptoms. Notes a 75% decrease in somatic symptoms and 50% improvement in sleep. Scores on the joyce, anxiety, and depression domains remained the same, therefore no decompensation noted. Pt self-reports overall mood stability for the past 4 weeks and improvement in anxiety, ruminations, and depression. Pt reports increased skills as well as insight into Bipolar. He is hopeful about the future. Pt continues to report anxiety (mostly in the AM) which is triggered by thoughts of past poor decisions. Seeks reassurance from other often. Also continues to report depression triggered mostly by guilt and regret over past actions and decisions. Overall his mood has remained stable since entering [facility] with no highs or lows per report. Medication compliant. Even though scores in anxiety, depression, and joyce scales did not show decrease they have remained stable and not worsened. Problem #1 Problem Name:: Mood Instability Status of Goals:: completed. Able to identify 4 warning signs to Joyce and 3 coping strategies for depression/mood disturbance (refer to Multidiscipline note on 06/11/21). Also reports increased insight and awareness of Bipolar diagnosis. Self-reports improved mood stability. Team Recommendations:: Will discharge next week as he reports stability and has completed treatment plan goals. Problem #2 Problem Name:: Anxiety Status of Goals:: completed. Able to identify and consistently use 3 calming skills for anxiety (refer to Multi-discipline note on 06/12/21). Self reports decreased anxiety and improved functioning. Reports decreased rumination and increased social and physician activities (has begun to exercise daily again). Last report only needed to use PRN for medication once in the past week. Team Recommendations:: Will discharge next week as he reports stability and has completed treatment plan goals.
--- NOTE | 2021-06-13 09:05 | BH.SGPN.GN ---
Behaviors/Verbalizations/Mental Status: [] Eye contact is good. Motor activity is appropriate. Appearance is casual. Speech is Appropriate. Mood is euthymic. Affect is full. Thoughts are linear and logical. No evidence of psychosis. Reviewed daily check in sheet and no reports of suicidal ideations or intent. Client Response/Progress/Benefit: [] Pt participated when prompted. Attentive. Mental health wins include I threw a birthday republican for my and it was very fun. He shared that this helped his mood as well. I put her through a lot with my mental health and it was nice to start to pay here back. Shared that he is trying to focus on the present and future regarding his family and not so much on the past and his bad choices while manic. I want to do things to make her smile. Reports that he feels stable, however did mention about 15-20 minutes of anxiety in the AM. Group normalized anxiety moments and then provided feedback on setting routine in the AM to make starting the day easier and more purposeful. Pt admits that he would benefit from a morning routine. Peers gave examples of theirs which was beneficial. Plan is to continue in IOP to maintain gains with estimated discharge next week. Narrative Note: []
--- NOTE | 2021-06-13 10:20 | BH.SGPN.GN ---
Behaviors/Verbalizations/Mental Status: []Client alert and oriented, neatly dressed and groomed. Eye contact good. Motor activity appropriate. Speech within normal limits. Affect constricted, mood anxious. Thoughts linear, logical, no signs of hallucinations or delusions. Client Response/Progress/Benefit: []Pt was an engaged participant AEB pt listening attentively to others. Attentive during psychoeducation on communication styles. Assisted group with identifying benefits of effective communication on mental health which included: getting needs met, improves relationships, maintains boundaries, and prevents additional conflict. Pt did not share his communication style, but pt was engaged throughout discussion AEB nodding. Progress noted in pt?s report of getting back into exercise. Benefited from increased awareness of different communication barriers, styles, and the importance of communicating effectively to improve mental wellness. Will continue IOP tx to promote mood stability, gain healthy support, and further increase use of healthy coping skills. Narrative Note: []
--- NOTE | 2021-06-13 11:20 | BH.SGPN.GN ---
Behaviors/Verbalizations/Mental Status: []Client alert and oriented, casually dressed and appropriately groomed. Eye contact fair. Motor activity appropriate. Speech WNL. Affect congruent, mood euthymic. Thoughts linear, logical, no signs of hallucinations or delusions. Client Response/Progress/Benefit: []Client is a passive participant AEB client appearing to listen attentively to others however does not contribute thoughts and feelings to group discussions. Client often nods to comments from therapist and peers. Client appeared attentive during group discussion on the pay offs and costs of the different communication styles. Attentive during psychoeducation on interpersonal DBT skill LOVELY. Client did not share with group what he learned from today he would like to apply in his everyday life. Client seemed to benefit from increasing awareness of healthy strategies to improve communication. Will continue IOP tx to continue use of healthy coping skills, challenge negative thoughts and prevent decompensation.
--- NOTE | 2021-06-18 10:54 | BH.MDN ---
Multi-Disciplinary Note - Note 60-min Individual Time Started:: 09:00 Date: 06/18/21 Purpose of session/treatment goals addressed:: Pt reports increased anxiety, rumination, and unconscious anxiety tics since last week. Eye Contact:: Good Motor Activity:: Appropriate Appearance:: Casual Speech:: Appropriate Mood:: Anxious Affect:: Congruent Thoughts:: Linear, Logical, No evidence of hallucinations/delusions noted Staff Interventions:: psychoeducation on: - cognitive distortions., CBT techniques Client Response:: Pt reports increase anxiety since last week which mainly occurs in the AM. Attempted to utilized skills however difficulty with thoughts. Did not follow through with suggestions last week to create a morning routine. Today he reports that he plans to start practicing yoga in the AM. We also discussed volunteering locally and pt was given numbers to investigate. I need to keep my mind busy. He reports that his has noticed an type of verbal/physical tic at times. Pt reports that this only occurs when he is anxious or has anxiety provoking thoughts and not while distracted (conversation, TV, etc). reports repeated sound or phrase hmmm which also presents as a soft grunt as if contemplating out loud. Noticed these in the past 1.5 weeks. Majority of session we discussed ruminating thoughts which trigger anxiety I should have done better I should have taken a strong stance I should be stronger I should have more will power. Unsure cause of regression or why skills previously used are not as effective. No specific trigger to worsening anxiety in past week. We worked together to challenge these negative thoughts, identify cognitive distortion, and also to practive acceptance of past as well as emotions associated with them. Risks/Concerns:: no risks or concerns noted. Progress Toward Goals/Plan:: Regression since last week. Pt places unrealistic expectations on himself and blames himself for poor financial moves and his daughter's marriage not working out. When we challenge these thoughts it becomes clear that he was not the only person responsible for these events not working out to expectations. Pt believes he should have known not to trust certain people. This is mindreading and also unrealistic expectations due to information at the time (same is true with daughter's ex). Gave him worksheet to identify thoughts, feelings, cog, distortions, and rational response in the AM. Due to regression and suggestion to stay in IOP we will continue for another week. Plan to meet with psychiatrist tomorrow regarding anxious tics. Time Stopped:: 10:00
--- NOTE | 2021-06-19 12:16 | PCM.BH.PN_ITS ---
Progress Note Progress Note: History of Present Illness/Interim History: [] The patient is a 81-year-old male with a history of bipolar 1 disorder and anxiety who is seen in follow-up at the [facility] behavioral health IOP program. I last saw the patient 2 weeks ago and he has done well and is soon to be discharged from the IOP program. Today the patient states that he and his have noticed that he has been having tic disorder with some vocalization and a grunt that occurs when he is anxious. The staff at the IOP program had noticed this tic only in the past 2 weeks. The patient states he has had the tic off and on for over 6 months but it only occurs when he is very anxious. His is complaining about the noise he makes when he has the tic and she is also fairly negative about mental illness and the treatment of mental illness. The patient says his mood is good and he has been walking more as the weather is getting better and he feels that he is doing well except for this vocal tic disorder. He states that his sleep is pretty good at 6 to 7 hours a night which is good for him. He does feel increasingly anxious in the morning and that is when the tic occurs or worsens. He has not had the tach at all today and some days he does not have it and he is unable to correlate this with anything he does. Current Psychiatric Medications: [] Seroquel 50 mg p.o. nightly; hydroxyzine 25 mg 1 as needed for panic attack which he uses rarely Mental Status Examination: [] Patient is an 81-year-old male who is seen wearing a mask and appears younger than stated age and is casually dressed and groomed with good hygiene. He is ambulatory with a normal gait. There is no evidence of the tech during the interview. The patient has no psychomotor agitation or retardation. Eye contact is good and speech is normal rate and rhythm and fluent with no pressure. Mood is euthymic. Affect is full and normal. Thought process is goal-directed and organized. Thought content: The patient has no evidence of any passive thoughts of , suicidal ideation, plan for suicide, homicidal ideation, hallucinations, delusions or symptoms of karolina. Patient is looking forward to the spring and summer weather as he will be able to get outside more. Reality testing is intact. Judgment is intact. Insight is good. Impulsivity is low. Diagnoses: [] 1. Bipolar 1 disorder, most recent episode depressed, mild 2. Generalized anxiety disorder 3. Tic disorder 4. Longterm, financial and primary support issues Plan: [] The patient will be discharged from the IOP program at [facility] soon as the structure, support, education and group therapy have helped the patient improve his insight and his functioning. He felt safe during the interview and if it anytime he does not feel safe he will let us know or go to the emergency room. The risks, options, possible complications and side effects of the medications were again discussed with the patient and he understands and accepts these. The patient agreed to have his Seroquel increased to 75 mg p.o. nightly. This was done in order to help with his anxiety and control of his mood fluctuations for his mood disorder. In addition Seroquel is in the class of medication that may help tics improve such as the medication or wrap. If the tics do not improve after several weeks or if his condition worsens he is encouraged to call his primary care doctor for a referral to a neurologist. He will continue to keep regular sleep-wake hours, eat healthfully and exercise by walking regularly. He will continue to follow- up with his outpatient medical and psychiatric providers. Prescription was sent in for Seroquel 25 mg, 3 p.o. nightly, #270 with 1 refill.
--- NOTE | 2021-06-24 09:00 | BH.SGPN.GN ---
Behaviors/Verbalizations/Mental Status: []Pt alert and oriented, casually dressed and groomed. Eye contact good, motor activity appropriate, speech within normal limits. Affect, congruent. Mood, euthymic. Thoughts linear, logical, no signs of hallucinations or delusions. Reviewed pt's daily symptom tracker, no SI indicated. Client Response/Progress/Benefit: p[]pt responded well to session, attentive and engaged. Pt reports feeling great as it is his last day of IOP tx and pt feels like my old self again. Pt shared he will miss IOP and hopes to do aftercare. Pt reflected on his growth since starting IOP tx which included reduced depression, getting back to doing activities he used to enjoy, and less rumination. Pt stated acceptance has been helpful in his recovery and so has having a routine. Pt discussed how he was reluctant at first to try IOP tx but he kept an open mind and it was the best decision I made. Pt denied any stressors today and shared he plans to continue to focus on the present. Pt to discharge from IOP tx today as he has accomplished his tx goals and no longer meets criteria for IOP level of care. Narrative Note: []
--- NOTE | 2021-06-24 10:10 | BH.SGPN.GN ---
Behaviors/Verbalizations/Mental Status: [] Eye contact is good. Motor activity is appropriate. Appearance is casual. Speech is Appropriate. Mood is euthymic. Affect is full. Thoughts are linear and logical. No evidence of psychosis. Client Response/Progress/Benefit: [] Pt did not participate in group discussion, which is typical of patient. Attentive during group psychoeducation. Limited participation in small group during experiential activity where patient answered questions regarding mental health statistics. Benefited from increased awareness of how mental health stigma can impact individuals and treatment. Plan is to discharge pt from IOP today as he has met all treatment plan goals and no longer meets criteria for IOP level of care. Narrative Note: []
--- NOTE | 2021-06-24 15:45 | BH.MDN ---
Multi-Disciplinary Note - Note 30-min Individual Time Started:: 11:15 Date: 06/24/21 Purpose of session/treatment goals addressed:: Reviewed progress in past week. Aftercare planning,. Eye Contact:: Good Motor Activity:: Appropriate Appearance:: Casual Speech:: Appropriate Mood:: Euthymic Affect:: Full Thoughts:: Linear, Logical, No evidence of hallucinations/delusions noted Staff Interventions:: mindfulness skills, discharge planning Client Response:: Pt entered IOP this AM reporting that he is feeling good and would like to discharge a day early (plan was discharge on 06/27/21). This therapist met with patient to discuss this further. As noted in last session pt was scheduled to discharge last week however reported increase in anxiety and nervous tics so we decided to push back his discharge a week. He reports no nervous tics in the past few days and has followed through with action plan to address anxiety in the AM. He has developed an AM routine and feels that he is benefiting from his routine. States that he has anxious and ruminating thoughts during the day however they are not consuming him like they had last week. He is utilizing skills such as accepting and reframing thoughts. He has also purchased a new book on managing thoughts which he is excited to read. He continues to watch Youtube videos on mental health topics as well. Risks/Concerns:: no risks or concerns Progress Toward Goals/Plan:: Progress noted since last week with plan to discharge today which is an IOP session early (at pt request). We reviewed topics discussed and had another conversation about continuing with individual counseling after discharge. Pt has been hesitant to do this throughout treatment. He declines to have this therapist make the call for him. Today he tells me that he wants to discuss this further with his PCP Dr. Tello. I strongly encouraged him to follow-up. He has the referrals that I gave him from 2 weeks ago. I discussed the benefits on continued counseling and how this would increase chances of continued stability. He also declined psychiatry and wants to receive medication management from his PCP. Offer aftercare group here at [facility] and he declined as well. Pt made progress in IOP per self-report. Will be discharged today. Time Stopped:: 11:45
--- NOTE | 2021-06-24 15:45 | BH.DS ---
Discharge Summary - Demographics Date of Admission:: 05/13/21 Discharge Date: 06/24/21 Presenting Problems at Admission:: Pt is a 81 year old male referred to [facility] by his PCP due to mood instability. PCP had referred due to depressive episode with fleeting suicidal ideations after she started him on Zoloft. Pt originally presented to [facility] for an intake on 03/19/21. During intake he presented with symptoms consistent with karolina including; restlessness, grandiose thinking, pressured/rapid speech, and tangential thoughts. 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 Family placed restrictions on his spending and bank account access due to his karolina. Endorsed racing thoughts, poor concentration, inability to focus, and inability to sleep. Patient never followed up after that 03/19/21 intake and per report from PCP went into a depressive episode. Pt declined IOP on 2 occasions however recently decided to enroll. Presents this time around in depressive episode with fleeting passive suicidal ideations, anhedonia, low energy, low motivation, isolation, and significant guilt. Reports anxiety and ruminations over recent impulsive decisions which have negatively impacted his family. He is hesitant about treatment and medications and appears to have been strongly encouraged to attend IOP by his and PCP. Admits to stigma related to mental health illness. Significant concern that he will cycle back into karolina or hypomania w/o medication intervention and structured treatment. Discharge Diagnoses:: Bipolar 1 disorder, most recent episode depressed, severe without psych. Generalized Anxiety Disorder Reason for Discharge:: Met all treatment plan goals. No longer meets criteria for [facility] level of care. - Treatment Progress During Treatment & Response: Patient has responded well to treatment. Pt consistently attended the program. While quiet in groups he appeared attentive AEB by note taking and discussions in individual sessions of group topics. Self reports decreased anxiety, depression, and improved mood. Reports decreased ruminations on past failures and impulsive decision-making. Continues to have guilt and regret, however per report has learned to accept these and focus on the present/future. He has set boundaries with people who he has identified as unhealthy. According to DSM-5 outcomes pt showed a 10% decrease in overall symptoms. Notes a 75% decrease in somatic symptoms and 50% improvement in sleep. Scores on the karolina, anxiety, and depression domains remained the same, therefore no decompensation noted. Pt self-reports overall mood stability for the past 4 weeks and improvement in anxiety, ruminations, and depression. Pt reports increased skills as well as insight into Bipolar. He is hopeful about the future. Struggled with anxiety in the AM the past few weeks however notes significant improve this week after developing a plan and taking action. Reported a verbal nervous tic which reports has improved this week as well. Seeks reassurance from others often. Also continues to report depression triggered mostly by guilt and regret over past actions and decisions. Overall his mood has remained stable since entering [facility] with no highs or lows per report. Medication compliant. Even though scores in anxiety, depression, and karolina scales did not show decrease they have remained stable and not worsened. Issues Still to be Addressed:: Anxiety, ruminations on the past, guilt, medication management for Bipolar, and depression. Discharge Recommendations/Instructions:: Recommended to follow up with individual counseling and psychiatry however pt declines. He wishes to follow up with medication management through his PCP Dr. Tello for which he has appt next week. He was given referrals to [facility] as well as [facility] for individual counseling and strongly encouraged to make appointment. Long discussion had on the benefits on continued counseling to prevent decompensation and maintain gains. Discharge Handout: Complete Discharge Handout with client on aftercare options and continuity of care.
== END 2021-06-25 08:55 | disposition home or self-care (01) ==
LOC: BHIOP 07:56
PROVIDERS: PCP Internal Medicine; Referring Provider Psychiatry & Neurology Psychiatry; Visit Provider Psychiatry & Neurology Psychiatry
DX: F31.31 Bipolar disorder, current episode depressed, mild (principal); F41.8 Other specified anxiety disorders; F95.9 Tic disorder, unspecified; Z79.899 Other long term (current) drug therapy
CPT/HCPCS: S9480; 90832; 90834; 90837; 90853

== ENCOUNTER 2021-06-27 10:31 | Outpatient (RCR) | payer MEDICARE, SELFPAY | END 2021-07-04 23:59 | disposition home or self-care (01) | LOC: DC 10:31 | PROVIDERS: PCP Internal Medicine; Referring Provider Internal Medicine; Visit Provider Internal Medicine | DX: E11.65 Type 2 diabetes mellitus with hyperglycemia (principal) | CPT/HCPCS: G0108 ==

== ENCOUNTER 2021-07-11 13:30 | Outpatient (RCR) | payer MEDICARE, SELFPAY | END 2021-08-03 23:59 | LOC: DC 13:30 | PROVIDERS: PCP Internal Medicine; Referring Provider Internal Medicine; Visit Provider Internal Medicine | DX: E11.65 Type 2 diabetes mellitus with hyperglycemia (principal) | CPT/HCPCS: 97803; G0109 ==

== ENCOUNTER 2021-08-08 09:30 | Outpatient (RCR) | payer MEDICARE, SELFPAY | END 2021-09-03 23:59 | LOC: DC 09:30 | PROVIDERS: PCP Internal Medicine; Referring Provider Internal Medicine; Visit Provider Internal Medicine | DX: E11.65 Type 2 diabetes mellitus with hyperglycemia (principal) | CPT/HCPCS: 97803; G0109 ==

== ENCOUNTER → 2021-09-20 | Outpatient (CLI) | payer MEDICARE, SELFPAY ==
[2021-09-20 11:12] LABS: AST(SGOT) 14 U/L (15-37); Alanine Aminotransfer ALT/SGPT 21 U/L (16-61); Albumin, Serum 3.5 g/dL (3.2-5.0); Alkaline Phosphatase 61 U/L (45-117); Anion Gap 4 (5-15); BUN 18 mg/dL (7-18); BUN/Creat Ratio 14.9 RATIO (10-20); Chloride 104 mmol/L (98-107); Creatinine, Serum 1.21 mg/dL (0.70-1.30); EST Glomerular Filtration Rate 61 mL/min (>60); Est Glom Filt Rate - Afr Amer 74 mL/min (>60); Globulin 3.4 g/dL (2.2-4.2); Glucose 191 mg/dL (74-106); Potassium 4.6 mmol/L (3.5-5.1); Protein, Total 6.9 g/dL (6.4-8.2); Sodium Level 138 mmol/L (136-145)
== END | disposition home or self-care (01) ==
LOC: LABSPEC 10:47
PROVIDERS: PCP Internal Medicine; Referring Provider Internal Medicine; Visit Provider Internal Medicine
DX: I25.10 Atherosclerotic heart disease of native coronary artery without angina pectoris (principal)
CPT/HCPCS: 80053

== ENCOUNTER 2021-10-21 09:00 | Outpatient (RCR) | payer MEDICARE, SELFPAY | END 2021-11-03 23:59 | LOC: DC 09:00 | PROVIDERS: PCP Internal Medicine; Referring Provider Internal Medicine; Visit Provider Internal Medicine | DX: E11.65 Type 2 diabetes mellitus with hyperglycemia (principal) | CPT/HCPCS: 97803; G0109 ==

== ENCOUNTER → 2021-11-08 | Outpatient (CLI) | payer MEDICARE, SELFPAY ==
--- NOTE | 2021-11-08 14:58 | VDLE_ITS ---
Reason For Study: Localized swelling Procedure LEFT This is a venous duplex using B-mode, color GSV is normal. flow and spectral Doppler. CFV is compressible, spontaneous, phasic, Exam performed in department. competent, and demonstrates normal A preliminary report was called and/or faxed augmentation. to [facility]. FV is compressible, spontaneous, phasic, competent and demonstrates normal augmentation. POP V is compressible, spontaneous, phasic, competent and demonstrates normal augmentation. T/P Trunk is compressible. PTV is compressible. LT PerV is compressible. VL/Venous Duplex US, Unilateral Interpretation Summary Deep veins of the left lower extremity are patent and compressible segmentally. There is no evidence of left lower extremity deep vein thrombosis. Valvular competence appears intac t within the proximal deep venous system on the left . The left great saphenous vein appears patent a nd compressible segmentally. Ordering Physician: Ana Tello Referring Physician: Ana Tello Performed By: Lorri Duvall RVDario
== END | disposition home or self-care (01) ==
LOC: CVS 14:56
PROVIDERS: PCP Internal Medicine; Referring Provider Internal Medicine; Visit Provider Internal Medicine
DX: R22.42 Localized swelling, mass and lump, left lower limb (principal)
CPT/HCPCS: 93971

== ENCOUNTER → 2022-01-10 | Outpatient (CLI) | payer MEDICARE, SELFPAY ==
--- NOTE | 2022-01-10 16:45 | MRI_ITS ---
STUDY: MRI LUMBAR SPINE WITHOUT CONTRAST REASON FOR EXAM: Male, 81 years old. LBP, LEFT sciatica TECHNIQUE: Standardized fat and water weighted pulse sequences were obtained in the sagittal and axial planes. COMPARISON: None FINDINGS: No demonstrated fracture. Vertebral bodies are normal in height. T12-L1: Normal disc height and morphology. Normal bilateral facet joints. Normal central canal. Normal bilateral lateral recesses. Normal intervertebral neural foramina. L1-2: Disc dehydration. Normal bilateral facet joints. Normal central canal. Normal bilateral lateral recesses. Normal intervertebral neural foramina. L2-3: Disc dehydration. Normal bilateral facet joints. Normal central canal. Normal bilateral lateral recesses. Normal intervertebral neural foramina. L3-4: Disc dehydration. Normal bilateral facet joints. Normal central canal. Normal bilateral lateral recesses. Normal intervertebral neural foramina. L4-5: Disc dehydration and moderate disc space narrowing. Fatty endplate changes. Normal bilateral facet joints. Normal central canal. Normal bilateral lateral recesses. Mild foraminal encroachment due to spurring. L5-S1: Edematous endplate changes. Bilateral L5 spondylolysis. 5 mm anterolisthesis, consistent with grade 1 spondylolisthesis. Moderate facet hypertrophy. Normal central canal. Normal bilateral lateral recesses. Severe foraminal stenosis due to anterolisthesis and spurring. Normal visualized sacral ala. Normal visualized paraspinous soft tissue structures. MRI/Spine Lumbar (Routine) IMPRESSION: Grade 1 spondylolisthesis at L5-S1. Severe L5-S1 foraminal stenosis. Electronically Signed: Marii Chang MD at 23:42 EDT Reading Location ID and State: [id number] / Tel , Service support ,
== END | disposition home or self-care (01) ==
PROVIDERS: PCP Internal Medicine; Visit Provider Internal Medicine
DX: M54.32 Sciatica, left side (principal)
CPT/HCPCS: 72148

== ENCOUNTER → 2022-01-24 | Outpatient (CLI) | payer MEDICARE, SELFPAY ==
--- NOTE | 2022-01-24 11:01 | MRI_ITS ---
EXAM: MR HEAD WITHOUT INTRAVENOUS CONTRAST CLINICAL INDICATION: R41.89 alteration in cognition -- R41.89 alt. in cog TECHNIQUE: Multiplanar and multisequence MR images of the brain were obtained without intravenous contrast. This report was created using Power[employer] report generation technology. COMPARISON: MRI brain without and with contrast 01/15/2017. FINDINGS: BRAIN AND EXTRA-AXIAL SPACES: Unremarkable. No intra- or extra-axial hemorrhage. No evidence of acute infarct. No intracranial mass or mass effect. There is preservation of the campos/white matter interface. Posterior fossa structures are unremarkable. Ventricles are appropriate for age. No hydrocephalus. Basal cisterns are patent. SELLA: Unremarkable. Normal sella turcica, pituitary gland, infundibular stalk, optic chiasm and hypothalamus. AUDITORY SYSTEM: Unremarkable. The internal auditory canals are patent. BONES/JOINTS: Unremarkable. No discrete lytic or blastic abnormalities. SINUSES: Unremarkable as visualized. Clear. MASTOID AIR CELLS: Unremarkable as visualized. Clear. ORBITS: Unremarkable as visualized. Both globes, extraocular muscles, optic nerves and retrobulbar fat appear unremarkable. VASCULATURE: Unremarkable as visualized. Normal flow voids in the major intracranial circulation. MRI/Brain without Contrast IMPRESSION: 1. Negative MRI brain without intravenous contrast. 2. No interval change when compared to 01/15/2017. Electronically Signed: Juan Jose Rivera MD at 12:54 EDT ,
== END | disposition home or self-care (01) ==
PROVIDERS: PCP Internal Medicine; Referring Provider Internal Medicine; Visit Provider Internal Medicine
DX: R41.89 Other symptoms and signs involving cognitive functions and awareness (principal)
CPT/HCPCS: 70551

== ENCOUNTER 2022-01-27 15:00 | Outpatient (RCR) | payer MEDICARE, SELFPAY ==
--- NOTE | 2021-07-10 15:07 | HP.PTEVAL_ITS ---
Patient's Visit Information CASSIE CHAVIRA is a 81 year old M referred to Physical Therapy by Dr. Ana Tello MD with a diagnosis of L hip pain, gait unsteadiness, diabetic neuropathy. Date of Evaluation: 07/09/21 Physical Therapist: Clay Maya DPT - Visit Plan Frequency: 2x /Week Duration: 4 Weeks Plan: Start with glute med/max strengthening, IT band stretching along with HS stretching. Promote walking program as well. Progress to CK/functional strengt hening. - Subjective Pt. is here today for his initial evaluation with diagnosis of L hip pain, gait unsteadiness, diabetic neuropathy. Pt. reports no mech of injury. He reports pain for ~2 months. Pt. reports pain is consistent with out trigger. He reports no falls, but reports occasional unsteadiness with his gait. He is diabetic and is reporting increasing neuropathy in his feet. He reports being active, but has been less active recently. He reports pain at his lateral hip and down his L leg, laterally. He denies back pain. No pain with sleeping, does not wake him up. Pt. is hopeful to reduce symptoms and increase his strength in his L leg. - Pain L hip Pain Intensity (Out of 10): 4 Pain Intensity Range: 3, 6 Comment: L lateral hip - Objective POSTURE: Pt. has good posture in stance. Pt. has normal wt. shifting between B LEs, no favoring LLE. PALPATION: Pt. is tender along L greater trochanter, and IT band region down LE. NEURO: Pt. has normal DTR of BLEs. Pt. has decreased sensation in BLE feet, diabetic neuropathy. Pt. is able to rise on heels and toes no balance aid needed. ROM: Lumbar spine: flexion- nil loss NE, extension min/nil loss NE, SB nil loss NE bilat, rotation- min loss NE bilat. Pt. has tight HS bilat, mild increase NW, + marilyn's sign- tight IT band bilat. Pt. has great B hip ROM without increase in symptoms. MMT: RLE 5/5 throughout; LLE has 5/5 strength in LLE, except 4+/5 hip abd, 4+/5 hip ER, hip ext 4+/5. GAIT: Pt. ambulates without AD. Pt. has slight lean to R side in stance. Pt. has no increase in symptoms with walking. - Balance/Special Test Scores Functional Gait Assessment Score: 26 % Disability: 13.3400 CATSIB Score (Max score 120 seconds): 103 Lower Extremity Functional Score: 44 - Goals Goal 1:: LTG: Pt. to be I with HEP for IT band stretching, glute med/max strengthening. Goal Time Frame: 4-6 Weeks Goal 2:: STG: Pt. to ambulate with 0-2/10 pain in LLE for unlimited distances. Goal Time Frame: 2 Weeks Goal 3:: STG: Pt. to be able to sit in a chair for 1-2 hours with 0-2/10 pain in LLE. Goal Time Frame: 2 Weeks Goal 4:: LTG: Pt. to have increased IT band length indicated by negative Marilyn's testing of LLE. Goal Time Frame: 2-4 Weeks Goal 5:: LTG: Pt. to have increased LLE strength to 5/5 throughout allowing for better use of glute medius with reduce use of TFL. - Rehabilitation Potential Physical Therapy Diagnosis: Pt. has signs and symptoms consistent with L hip pain, gait unsteadiness, diabetic neuropathy. Pt. has LLE weakness, but has great hip ROM. He does have some IT band and HS tightness as well. He reports a constant greater trochanteric pain and IT band pain. He would benefit from PT to decrease his soft tissue resistance and to progress hip strengthening. Rehabilitation Potential: Excellent - Anticipated Interventions Patient/Client Instruction: Educate patient on: Condition, Plan of Care, Risk Factors, Benefits of Fitness Program For the Purpose of:: To foster healthy habits, To improve decision making, To facilitate caregiver knowledge, To improve self management, To prevent re- injury, To improve ability to perform tasks related to life management Therapeutic Exercise to Include: Strength training, Power training, Balance training, Coordination, Body mechanics, Dynamic Lumbar Stabilization For the Purpose of:: To decrease pain, To decrease swelling/inflammation, To increase ROM, To improve muscle performance and motor function, To improve gait and locomotor functions, To improve health of tissue, To decrease soft tissue restriction Thank you for the opportunity to evaluate your patient. For Medicare and Medicare HMO plans, please review the plan of care and approve it. It will need to be FAXED BACK to us at [phone] for Medicare purposes. For Medicare only, by signing this I certify the plan of care. Please let me know if there are questions or concerns regarding this plan of care. Physician Signature: Date:
--- NOTE | 2021-09-05 07:21 | HP.PTREVAL_ITS ---
Dr. Ana Tello MD, It has been my pleasure to treat CASSIE CHAVIRA over the last 6 visits for L hip pain, gait unsteadiness, diabetic neuropathy. Please see the progress note below for an update on the physical therapy plan of care! Subjective: Pt. reports having pain in his LLE starting as his glute that extends into his calf with walking and standing. No pain with sitting or lying down. [place] and was not able to do his exercises. He reports being 25% better overall, but feels like his symptoms are elevating again. Objective/Function: ROM: LUMBAR SPINE: flexion full motion NE, extension nil/min loss increase NW in LLE, SB nil loss NE, rotation nil loss NE. L hip: full motion NE in all directions. He does have some soreness with HS stretching, mild soreness with IT band stress, but minimal. LLE strength: 5/5 throughout without increase in symptoms. SLUMP TESTING: negative. SLR- + on L side. GAIT: Pt. has good balance, he does report increase LLE pain with walking greater than 2min today, instantly gone with sitting and reduced with slump posture. His symptoms are suggesting a stenotic like nature and I would like him to work on some core stability and stretching. I want him to work on some core strength, Neutral spine core stability with focus on TA control. He can use flexion as a rescue maneuver, but core stability is going to be the focus. Plan Plan: I am recerting him for another 3 weeks x2 per week. focus on neutral spine core stability. May use flexion to reduce symptoms. He will need increased VC/TCing to proper exercise techniques. Balance/Gait/Functional tests - Balance/Special Test Scores Functional Gait Assessment Score: 26 % Disability: 13.3400 CATSIB Score (Max score 120 seconds): 103 Lower Extremity Functional Score: 51 Goals Goal 1:: LTG: Pt. to be I with HEP for IT band stretching, glute med/max strengthening and core strengthening exercises in neutral spine. Goal Time Frame: 4-6 Weeks Goal Progress: Progressing Goal 2:: LTG: Pt. to be able to walk 10-15' prior to having increased LLE pain. Goal Time Frame: 4-6 Weeks Goal Progress: Progressing Goal 3:: STG: Pt. to be able to sit in a chair for 1-2 hours with 0-2/10 pain in LLE. Goal Time Frame: 2 Weeks Goal Progress: Goal Met Goal 4:: LTG: Pt. to have increased IT band length indicated by negative Ofelia's testing of LLE. Goal Time Frame: 2-4 Weeks Goal Progress: Progressing Goal 5:: LTG: Pt. to have increased LLE strength to 5/5 throughout allowing for better use of glute medius with reduce use of TFL. Goal Progress: Goal Met Anticipated Interventions Patient/Client Instruction: Educate patient on: Condition, Plan of Care, Risk Factors, Benefits of Fitness Program For the Purpose of:: To foster healthy habits, To improve decision making, To facilitate caregiver knowledge, To improve self management, To prevent re- injury, To improve ability to perform tasks related to life management Therapeutic Exercise to Include: Strength training, Power training, Balance training, Coordination, Body mechanics, Dynamic Lumbar Stabilization For the Purpose of:: To decrease pain, To decrease swelling/inflammation, To increase ROM, To improve muscle performance and motor function, To improve gait and locomotor functions, To improve health of tissue, To decrease soft tissue restriction Please do not hesitate to contact me at [phone] by phone or if you have questions or concerns regarding this new plan of care! Sincerely, Clay Maya DPT
--- NOTE | 2021-10-16 10:31 | HP.PTREVAL_ITS ---
Dr. Ana Tello MD, It has been my pleasure to treat CASSIE CHAVIRA over the last 13 visits for L hip pain, gait unsteadiness, diabetic neuropathy. Please see the progress note below for an update on the physical therapy plan of care! Subjective: Pt. reports doing okay. Pt. is still having some symptoms, but not as bad. He is able to stand/walk for ~5-10 min prior to having L leg pain. His pain starts in his hip down to his toes. Pt. has not had any imaging at this point in time. He did arrive with a new script for balance and leg pain from his symptoms, she would like him to continue. Objective/Function: ROM: Lumbar spine: He has good ROM in his lumbar spine, min loss with extension. He has great ROM of his B hips, reports of mild tightness with hip ER, but has 70deg of ER motions, No pain with any hip motion today. MMT: BLEs 5/5 throughout; except hip abd 4/5 bilat, ext 4+/5. No pain with MMT of BLEs. Pt. has a positive slump test on L side, negative on R side. + SLR on L side as well. FGA 24/30 difficult with narrow and eyes closed balance. TU.1 sec. sharpened stance with EC 8sec, EO 28sec. He has marked difficulty with eyes closed compared to open. He continues to present with a spinal stenosis like symptoms consistent with dural testing. He symptoms arising after 5-10 min walk and reduced with flexed posture again suggest stenotic pathology. He does have some imbalance especially with eyes closed. I would like to continue to work on balance, but also core stability exercises and balance exercises Plan Plan: Requesting more visits to focus on balance and core stability to keep his L hip/back pain reduced. Focus on neutral spine core stability in order to reduce stress to lumbar spine with walking. Balance/Gait/Functional tests - Balance/Special Test Scores Functional Gait Assessment Score: 26 % Disability: 13.3400 CATSIB Score (Max score 120 seconds): 103 Lower Extremity Functional Score: 51 Goals Goal 1:: LTG: Pt. to be I with HEP for IT band stretching, glute med/max strengthening and core strengthening exercises in neutral spine. Goal Time Frame: 4-6 Weeks Goal Progress: Progressing Goal 2:: LTG: Pt. to be able to walk 10-15' prior to having increased LLE pain. Goal Time Frame: 4-6 Weeks Goal Progress: Progressing Goal 3:: STG: Pt. to be able to sit in a chair for 1-2 hours with 0-2/10 pain in LLE. Goal Time Frame: 2 Weeks Goal Progress: Goal Met Goal 4:: LTG: Pt. to have increased IT band length indicated by negative Ofelia's testing of LLE. Goal Time Frame: 2-4 Weeks Goal Progress: Progressing Goal 5:: LTG: Pt. to have increased LLE strength to 5/5 throughout allowing for better use of glute medius with reduce use of TFL. Goal Progress: Goal Met Anticipated Interventions Patient/Client Instruction: Educate patient on: Condition, Plan of Care, Risk Factors, Benefits of Fitness Program For the Purpose of:: To foster healthy habits, To improve decision making, To facilitate caregiver knowledge, To improve self management, To prevent re- injury, To improve ability to perform tasks related to life management Therapeutic Exercise to Include: Strength training, Power training, Balance training, Coordination, Body mechanics, Dynamic Lumbar Stabilization For the Purpose of:: To decrease pain, To decrease swelling/inflammation, To increase ROM, To improve muscle performance and motor function, To improve gait and locomotor functions, To improve health of tissue, To decrease soft tissue restriction Please do not hesitate to contact me at [phone] by phone or if you have questions or concerns regarding this new plan of care! Sincerely, Clay Maya DPT
--- NOTE | 2021-12-24 13:15 | HP.PTREVAL_ITS ---
Dr. Ana Tello MD, It has been my pleasure to treat CASSIE CHAVIRA over the last 24 visits for L hip pain, gait unsteadiness, diabetic neuropathy. Please see the progress note below for an update on the physical therapy plan of care! Subjective: pt. reports doing better, but is still having some pain at lateral thigh with increased walking, but has recently had some improvement. He did come in with another script for leg/calf pain as well. Objective/Function: ROM: pt. has good ROM throughout RLE, including hip and knee. Normal HS length, good hip ER/IR motions. He does however having some tightness in his IT band. MMT: He is overall fairly strong but has some weakness with hip ER/IR (4/5) motions and hip abd 4+/5. knee and ankle strength 5/5 throughout. Pt. has good core strength as well. GAIT: pt. has fairly normal gait pattern with slight L hip ER positioning, but not major. He does not have much pain with walking over shorter distances, but with walking ~4'+ minutes. He has increased pain at lateral distal thigh into calf. reduces upon sitting. His symptoms have improved with IT band stretching and with glute med/hip ER strengthening. Plan Plan: I would like to see him x1 per week for 5 weeks to progress HEP with glute med, hip ER strengthening and IT band stretching. Progressing to I HEP. Balance/Gait/Functional tests - Balance/Special Test Scores Functional Gait Assessment Score: 26 % Disability: 13.3400 CATSIB Score (Max score 120 seconds): 103 Lower Extremity Functional Score: 51 Goals Goal 1:: LTG: Pt. to be I with HEP for IT band stretching, glute med/max strengthening and core strengthening exercises in neutral spine. Goal Time Frame: 4-6 Weeks Goal Progress: Progressing Goal 2:: LTG: Pt. to be able to walk 10-15' prior to having increased LLE pain. Goal Time Frame: 4-6 Weeks Goal Progress: Progressing Goal 3:: STG: Pt. to be able to sit in a chair for 1-2 hours with 0-2/10 pain in LLE. Goal Time Frame: 2 Weeks Goal Progress: Goal Met Goal 4:: LTG: Pt. to have increased IT band length indicated by negative Ofelia's testing of LLE. Goal Time Frame: 2-4 Weeks Goal Progress: Progressing Goal 5:: LTG: Pt. to have increased LLE strength to 5/5 throughout allowing for better use of glute medius with reduce use of TFL. Goal Progress: Progressing Anticipated Interventions Patient/Client Instruction: Educate patient on: Condition, Plan of Care, Risk Factors, Benefits of Fitness Program For the Purpose of:: To foster healthy habits, To improve decision making, To facilitate caregiver knowledge, To improve self management, To prevent re- injury, To improve ability to perform tasks related to life management Therapeutic Exercise to Include: Strength training, Power training, Balance training, Coordination, Body mechanics, Dynamic Lumbar Stabilization For the Purpose of:: To decrease pain, To decrease swelling/inflammation, To increase ROM, To improve muscle performance and motor function, To improve gait and locomotor functions, To improve health of tissue, To decrease soft tissue restriction Please do not hesitate to contact me at [phone] by phone or if you have questions or concerns regarding this new plan of care! Sincerely, Clay Maya DPT
== END 2022-01-27 19:00 | disposition home or self-care (01) ==
LOC: PT 15:00
PROVIDERS: PCP Internal Medicine; Referring Provider Internal Medicine; Visit Provider Internal Medicine
DX: M25.552 Pain in left hip (principal); E11.40 Type 2 diabetes mellitus with diabetic neuropathy, unspecified
CPT/HCPCS: 97035; 97110; 97140; 97161; 97164; J2405

== ENCOUNTER 2022-02-10 15:00 | Outpatient (RCR) | payer MEDICARE, SELFPAY | END 2022-02-10 19:00 | disposition home or self-care (01) | LOC: PT 15:00 | PROVIDERS: PCP Internal Medicine; Referring Provider Internal Medicine; Visit Provider Internal Medicine | DX: M25.552 Pain in left hip (principal); E11.40 Type 2 diabetes mellitus with diabetic neuropathy, unspecified; R26.81 Unsteadiness on feet | CPT/HCPCS: 97110 ==

== ENCOUNTER 2022-04-23 10:07 | Outpatient (CLI) | payer MEDICARE, SELFPAY ==
--- NOTE | 2022-04-23 10:10 | CDU_ITS ---
Reason For Study: CAD Rt. Velocities/BP Lt. Velocities/BP Prox CCA 81.5/13.5 cm/sec. Prox CCA 86.3/16.3 cm/sec. Mid CCA 68.3/13.5 cm/sec. Mid CCA 70.2/16.3 cm/sec. Dist CCA 57/12.6 cm/sec. Dist CCA 58.9/15.4 cm/sec. Prox ICA 45.4/12.4 cm/sec. Prox ICA 40.9/12.6 cm/sec. Mid ICA 71/22.1 cm/sec. Mid ICA 52.4/18.6 cm/sec. Dist ICA 40/9.7 cm/sec. Dist ICA 55.1/19.2 cm/sec. Rt. ICA/CCA = 1.04. Lt. ICA/CCA = 0.78. Prox ECA 88.3/11.3 cm/sec. Prox ECA 65.5/6 cm/sec. Rt. Vert. 47.5/13.5 cm/sec. Lt. Vert. 31.5/9.5 cm/sec. Right Extracranial There is intimal thickening but no significant atherosclerotic plaque noted in the right common carotid artery. There is intimal thickening but no significant atherosclerotic plaque noted in the right internal carotid artery. The right internal carotid artery is very tortuous. There is intimal thickening but no significant atherosclerotic plaque noted in the right external carotid artery. Antegrade flow is noted in the right vertebral artery. Left Extracranial There is intimal thickening but no significant atherosclerotic plaque noted in the left common carotid artery. There is intimal thickening but no significant atherosclerotic plaque noted in the left internal carotid artery. There is intimal thickening but no significant atherosclerotic plaque noted in the left external carotid artery. The left external carotid artery is tortuous. Antegrade flow is noted in the left vertebral artery. Procedure Carotid Duplex [id number]. This is a Carotid Duplex examination using B-mode, color flow and specral Doppler. Exam performed in department. VL/Carotid Duplex Ultrasound Interpretation Summary No significant atherosclerotic plaque or stenosis noted in the internal carotid arteries bilaterally. Flow within the vertebral arteries is antegrade bilaterally. Ordering Physician: Ana Tello Referring Physician: Ana Tello Performed By: Lorri Duvall RVT
== END 2022-04-23 23:59 | disposition home or self-care (01) ==
LOC: CVS 10:09
PROVIDERS: PCP Internal Medicine; Referring Provider Internal Medicine; Visit Provider Internal Medicine
DX: I77.1 Stricture of artery (principal); M89.38 Hypertrophy of bone, other site; I65.23 Occlusion and stenosis of bilateral carotid arteries
CPT/HCPCS: 93880

== ENCOUNTER → 2023-01-26 | Outpatient (CLI) | payer MEDICARE, SELFPAY ==
[2023-01-26 13:11] LABS: Absolute Lymphocyte Count 2.06 X10^3/uL (0.83-4.51); Absolute Neutrophil Count 5.2 X10^3/uL (2.0-7.7); Basophil# 0.04 X10^3/uL; Basophil% 0.4 % (0-1); Eosinophil# 1.02 X10^3/uL; Eosinophils% 10.9 % (0-5); Hematocrit 38.6 % (40-54); Hemoglobin 12.7 g/dL (13.0-16.5); Lymphocyte # 2.06 X10^3/ul (0.83-4.51); Lymphocyte % 22.1 % (19-41); Mean Corp Hgb Conc 32.9 g/dL (32-36); Mean Corpuscular Hgb 28.3 pg (27.0-32.0); Mean Corpuscular Volume 86.2 fL (80-94); Mean Platelet Vol. 10.4 fl (6.2-12.0); Monocyte# 0.92 X10^3/uL; Monocyte% 9.9 % (0-10); NRBC Flagged by Analyzer 0 % (0-5); Neutrophil # 5.24 X10^3/uL (2.7-7.7); Neutrophil % 56.3 % (47-70); Platelet Count 307 K/mm3 (150-450); RBC Distribution Width CV 13.3 % (11.6-14.6); RBC Distribution Width SD 41.7 fl (35.1-43.9); Red Blood Count 4.48 M/mm3 (4.6-6.2); White Blood Count 9.3 K/mm3 (4.4-11.0)
[2023-01-26 13:32] LABS: Microalbumin,Random Urine 16.7 mg/L (NO RANGE EST.)
[2023-01-26 13:40] LABS: BNP,B-Type NATRIURETIC PEPTIDE 21.6 pg/mL (0-100)
[2023-01-26 13:50] LABS: ALB/GLOB Ratio 0.8 RATIO (0.9-2.4); AST(SGOT) 15 U/L (15-37); Alanine Aminotransfer ALT/SGPT 20 U/L (16-61); Albumin, Serum 3.6 g/dL (3.2-5.0); Alkaline Phosphatase 64 U/L (45-117); Anion Gap 6 (5-15); BUN 15 mg/dL (7-18); BUN/Creat Ratio 14.3 RATIO (10-20); Calcium,Total 9.3 mg/dL (8.5-10.1); Chloride 102 mmol/L (98-107); Creatinine, Serum 1.05 mg/dL (0.70-1.30); EST Glomerular Filtration Rate 72 mL/min (>60); Est Glom Filt Rate - Afr Amer 87 mL/min (>60); Globulin 4.6 g/dL (2.2-4.2); Glucose 106 mg/dL (74-106); Potassium 4.6 mmol/L (3.5-5.1); Protein, Total 8.2 g/dL (6.4-8.2); Sodium Level 137 mmol/L (136-145); Thyroid Stim Hormone (TSH) 2.08 uIU/mL (0.358-3.74); Troponin-I HS 4 pg/mL (3.0-78.0)
== END | disposition home or self-care (01) ==
LOC: LABSPEC 12:48
PROVIDERS: PCP Internal Medicine; Referring Provider Internal Medicine; Visit Provider Internal Medicine
DX: E11.3551 Type 2 diabetes mellitus with stable proliferative diabetic retinopathy, right eye (principal); R06.02 Shortness of breath
CPT/HCPCS: 80053; 82043; 83880; 84443; 84484; 85025

== ENCOUNTER → 2023-02-04 | Outpatient (CLI) | payer MEDICARE, SELFPAY ==
--- NOTE | 2023-02-05 14:15 | STRESSREP_ITS ---
Stress Test Report Date: [02/04/2023] Procedure: Exercise tolerance test/imaging study Indications: Shortness of breath Consent: Per the patient Procedure: The patient exercised on a Nuno protocol for 6 minutes and 22 seconds achieving a peak heart rate of 164 bpm (118% predicted maximal heart rate) with a peak blood pressure 142/70 mmHg and a peak MET capacity of 8.1 METs. The baseline ECG demonstrated normal sinus rhythm. The peak exercise ECG demonstrated no significant ischemic changes. EKG during recovery revealed no significant ischemic changes [There were no cardiac dysrhythmias pretest, during exercise, or recovery]. The functional capacity was considered excellent for age. There was [no complaint of chest discomfort during exercise or recovery]. The examination was discontinued secondary to shortness of breath, achieving target heart rate. Impression: 1. Technically adequate (percent predicted maximal heart rate greater than 85%) exercise tolerance test 2. Stress test is negative for exercise-induced EKG changes of ischemia 3. The test test is negative for exercise-induced chest pain 4. Functional capacity is excellent for age 5. Nuclear images pending Myocardial perfusion imaging study: Technique: The patient was injected with 11.9 mCi of technetium 99m Cardiolite and subsequently rest SPECT Cardiolite nuclear imaging was obtained in the horizontal long, vertical long, and short axis views. The patient exercised on a Nuno protocol. Please see above for details. The patient was injected with 34.6 mCi of technetium 99m Cardiolite and subsequently stress SPECT Cardiolite nuclear imaging was obtained in the horizontal long, vertical long, and short axis views. A gated Cardiolite study at peak stress was obtained. Interpretation: Rest and stress SPECT Cardiolite nuclear imaging status post realignment, normalization, and attenuation correction, demonstrates no evidence of signifi cant ischemia or infarction. The gated Cardiolite study demonstrates no significant regional wall motion abnormalities. The reported LVEF is greater than 70%. Impression: 1. There is no evidence of significant ischemia or infarction. 2. The gated Cardiolite study reports an LVEF of greater than 70%. This note was generated with HydroLogexation software. It may contain incorrect words, spelling, and punctuation that were not noted in checking the note before signing.
== END | disposition home or self-care (01) ==
LOC: CVS 06:59
PROVIDERS: PCP Internal Medicine; Referring Provider Internal Medicine; Visit Provider Internal Medicine
DX: R06.02 Shortness of breath (principal)
CPT/HCPCS: 78452; 93017; A9500; A4216

== ENCOUNTER → 2023-03-05 | Outpatient (CLI) | payer MEDICARE, SELFPAY ==
--- NOTE | 2023-03-05 13:56 | ECHOD_ITS ---
Reason For Study: DYSPNEA Procedure This was a 2D Doppler, Color Flow transthoracic echocardiogram. The study was technically difficult. Definity declined. Exam performed in department. Left Ventricle Normal LV size. The estimated ejection fraction is 60-65 %. No evidence for diastolic dysfunction. No regional wall motion abnormalities noted. Right Ventricle Normal RV size. Normal systolic function. Atria Normal left atrium. Normal right atrium. No doppler evidence for ASD. Mitral Valve There is no mitral valve stenosis. No mitral valve insufficiency. Tricuspid Valve There is no tricuspid stenosis. Trivial tricuspid valve insufficiency. Pulmonary artery systolic pressure is 30 mmHg. Aortic Valve Trisinus/trileaflet aortic valve. Aortic sclerosis, no stenosis. There is no aortic stenosis. Trivial aortic valve insufficiency. Pulmonic Valve There is no pulmonic valvular stenosis. Trivial pulmonic valve insufficiency. Great Vessels Normal aortic root. Pericardium/Pleural No pericardial effusion. MMode/2D Measurements & Calculations LVIDd: 3.9 cm IVSd: 1.2 cm Ao root diam: 3.7 cm LVIDs: 2.3 cm LVPWd: 1.1 cm FS: 42.1 % LAV(MOD-bp): 29.0 ml LVAd ap4: 26.5 cm2 SV(MOD-sp4): 38.3 ml LAV(MOD-bp) Indexed: 15.8 ml/m2 LVLd ap4: 7.9 cm LAV(MOD-sp2): 35.0 ml EDV(MOD-sp4): 73.5 ml LAV(MOD-sp4): 26.3 ml EDV(sp4-el): 75.6 ml LVAs ap4: 16.4 cm2 LVLs ap4: 6.3 cm ESV(MOD-sp4): 35.2 ml ESV(sp4-el): 36.2 ml EF(MOD-sp4): 52.1 % EF(sp4-el): 52.2 % SV(sp4-el): 39.4 ml LA A4 area: 12.1 cm2 LA dimension(2D): 3.3 cm RA A4 area: 8.2 cm2 TAPSE: 1.6 cm Doppler Measurements & Calculations MV E max bruce: 42.5 cm/sec Lat Peak E' Bruce: 6.3 cm/sec Med Peak E' Bruce: 4.4 cm/sec MV A max bruce: 88.6 cm/sec E/E' lat: 6.7 E/E' med: 9.6 MV E/A: 0.48 MV V2 max: 93.0 cm/sec Ao V2 max: 133.3 cm/sec LV V1 max: 90.9 cm/sec MV max P.5 mmHg Ao max P.1 mmHg LV V1 max P.3 mmHg MV V2 mean: 52.2 cm/sec Ao V2 mean: 90.3 cm/sec LV V1 mean P.6 mmHg MV mean P.2 mmHg Ao mean P.8 mmHg LV V1 mean: 59.0 cm/sec MV V2 VTI: 24.0 cm Ao V2 VTI: 27.7 cm LV V1 VTI: 19.1 cm AV (velocity ratio): 0.69 PA V2 max: 90.9 cm/sec PA V2 mean: 66.0 cm/sec ECHO/Echo Complete Interpretation Summary The estimated ejection fraction is 60-65 %. No evidence for diastolic dysfunction. Trivial aortic valve insufficiency. Aortic sclerosis, no stenosis. Ordering Physician: Grant Pierce Referring Physician: Grant Pierce Performed By: Heidi Maurice RCS
== END | disposition home or self-care (01) ==
LOC: CVS 13:55
PROVIDERS: PCP Internal Medicine; Referring Provider Specialist; Visit Provider Specialist
DX: R06.02 Shortness of breath (principal)
CPT/HCPCS: 93306

== ENCOUNTER → 2023-10-21 | Outpatient (CLI) | payer MEDICARE, SELFPAY ==
--- NOTE | 2023-10-21 07:47 | CT_ITS ---
STUDY: CT CHEST WITH CONTRAST REASON FOR EXAM: Male, 83 years old. Localized swelling, mass and lump, trunk RADIATION DOSAGE (If Supplied By Facility): CTDIvol = ( 11.12 ) mGy, DLP = ( 398.74 ) mGycm TECHNIQUE: Transaxial imaging was performed following intravenous administration of IV 100mL Isovue-300. Multiplanar coronal and sagittal images were reformatted. Individualized dose optimization techniques were used for this CT. COMPARISON: Comparison is made with prior examination dated May 12, 2018. FINDINGS: CHEST Small benign-appearing bilateral axillary lymph nodes. Hyperinflation. Increased interstitial markings at the lung bases in keeping with the chronic scarring. There is no demonstrated pleural abnormality. There are calcifications of the coronary arteries. There are multiple small lymph nodes within the mediastinum, which are normal in size and morphology most compatible with reactive lymph hyperplasia. Normal hilar regions. Normal unenhanced pulmonary arteries. Normal aorta arch and descending thoracic aorta. There are multi-level degenerative changes of the thoracic spine. There is no demonstrated abnormality of the visualized upper abdomen. CT/Chest WITH Contrast IMPRESSION: No cervical mass is seen. Small mediastinal and axillary lymph nodes. Scarring at the lung bases. Electronically Signed: Fawad Aragon MD at 12:08 EDT ,
[2023-10-21 08:21] LABS: CREATININE FINGERSTICK < 1.0 mg/dL (0.70-1.30); EGFR FINGERSTICK > 60.0000 mL/min (>60)
== END | disposition home or self-care (01) ==
LOC: CT 07:46
PROVIDERS: PCP Internal Medicine; Referring Provider Internal Medicine; Visit Provider Internal Medicine
DX: R22.2 Localized swelling, mass and lump, trunk (principal)
CPT/HCPCS: 71260; Q9967

== ENCOUNTER 2024-01-12 08:00 | Outpatient (RCR) | payer MEDICARE, SELFPAY ==
--- NOTE | 2024-01-12 09:00 | BH.COMM ---
Communication Note Communication with Client Communication Note: Met with pt to completed initial paperwork. No significant changes since pre-admission assessment. Completed risk assessment. low risk. Consulted with Dr. Santos with plan to admit to IOP with dx of Bipolar I f31.12
--- NOTE | 2024-01-12 09:02 | BH.SGPN.GN ---
Behaviors/Verbalizations/Mental Status: [] Client alert and oriented, casual appearance. Eye contact good. Motor activity appropriate. Speech within normal limits. Affect congruent, mood euthymic. Thoughts linear, logical, no signs of hallucinations or delusions. Reviewed client's symptom tracker, no risk for suicidal ideation, plan, or intent. Client Response/Progress/Benefit: [] Client responded well to session AEB listening to others and sharing thoughts/feelings. Client stated mental positive as showing up to IOP. Client stated he finds it helpful to hear from other people in the group. Client stated additional mental positive as feeling like his mood is starting to be stable. Client did not identify any current stressors. Appeared to benefit from support from peers. Will continue IOP tx to maintain mood stability, continue use of healthy coping skills, and prevent decompensation. Narrative Note: []
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
--- NOTE | 2024-01-12 11:10 | BH.SGPN.GN ---
Behaviors/Verbalizations/Mental Status: []Client alert and oriented, casually dressed and groomed. Eye contact fair. Motor activity appropriate. Speech within normal limits. Affect congruent, mood depressed. Thoughts linear, logical, no signs of hallucinations or delusions. Client Response/Progress/Benefit: [] Pt responded well to session, engaged in the experiential activity and passively participating in group processing. Pt did not complete a fear of failure worksheet, but he appeared to benefit from listening to peers and knowing he is not alone in struggles in life. Pt?s first day of IOP tx. Pt will continue IOP tx to prevent decompensation, gain healthy coping skills, and improve daily functioning. Narrative Note: []
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
--- NOTE | 2024-01-12 12:30 | BH.MTP_ITS ---
Master Treatment Plan Patient Information Program Physician:: Tricia Santos Primary Therapist:: Jean Claude Harris Psychiatric Diagnoses Psychiatric Diagnoses:: 1. Bipolar 1 disorder, most recent episode manic, moderate (F31.12) 2. Generalized anxiety disorder Diagnosis Code(s):: F31.12; F41.1 Estimated LOS Estimated LOS (in weeks):: 5 Problem/Goal #1 Problem/Goal #1 Stated Goal:: Achieve controlled behavior, moderated mood, more deliberative speech and thought process, and a stable daily activity pattern AEB self-report, staff observations, and reduction on outcome scores on the karolina domain. Description of Barriers: stigma associated with Bipolar dx, hx of non-compliance with medication recommendations, limited knowledge of Bipolar, karolina, and hypomania, and reluctance to connect with long-term mental health professionals. Functional Impact: Hx of manic episodes in which he spends excessively and has risky and impulsive behaviors. Recently offered to pay college tuition and co- sign a loan for two complete strangers. Was also seeking $100,000 from his family and calling people in [place] throughout the night discussing business oppurtunities (they have taken advantage of him in the past). Goal Relevant Strengths/Supports: Kind, passion about helping others, intelligent. Objectives Objective #1: Stated Objective: Client will increase understanding of bipolar illness through education from individual therapist as well as educational handouts. Interventions: Through individual and group counseling will provide education on criteria for Bipolar, define karolina/hypomania, identify warning signs to karolina, and develop an individualized and written Bipolar management plan for patient. Discharge Criteria: Complete Bipolar management plan Target Date: 02/10/24 Review Date: 01/27/24 Problem/Goal #3 Problem/Goal #3 Stated Goal:: Client will reduce overall frequency, intensity, and duration of anxiety to improve functioning AEB self-report and outcome scores on the anxiety domain Description of Barriers: stigma associated with mental dx, hx of non-compliance with medication recommendations, limited knowledge of Bipolar, karolina, and hypomania, and reluctance to connect with long-term mental health professionals. Functional Impact: Increased anxiety and guilt after manic episodes which can exacerbate depression. Goal Relevant Strengths/Supports: Kind, passion about helping others, intelligent. Objectives Objective #1: Stated Objective: Client will identify 2-3 cognitive distortions that lead to rumination and learn 2-3 ways to manage these thoughts to better manage anxiety as shown by reduced DSM-5 scores for anxiety. Interventions: Through individual and group counseling will provide education on the most common cognitive distortions and teach client the connection between thoughts, emotions, and feelings. Therapist will assist client in identifying, challenging, and replacing dysfunctional thoughts with positive, more realistic thoughts. Discharge Criteria: Able to identify 3 commonly used cog. distortions and 2-3 ways to challenge/reframe/manage them. Target Date: 02/10/24 Review Date: 01/27/24
--- NOTE | 2024-01-13 10:00 | BH.NA ---
Physical Data Vital Signs Pulse Rate: 73 Blood Pressure: 139/77 Height/Weight Height: 1.68 m Weight:: 72.575 kg Weight in Pounds: 160.0 lbs Nutritional History Appetite Nutritional Instructions: Describe your appetite:: Good Additional nutritional information:: Client denies change in appetite or weight. Functional Assessment Sleep Pattern Describe any problems with sleeping: Client states he sleeps about 4-6 hours per night. 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 If so, list type and date:: Yes (cataract removal) Substance Abuse Substance Abuse Please describe substance abuse in the last 30 days:: Client states he drinks 1-2 small glasses of wine per week. Client denies tobacco or substance use. Client drinks 1 cup of coffee per day. Mental Status Summary Mental Status Significant Findings/Observations on Appearance and Mood:: Client is alert and oriented x 4. Client is cooperative with assessment. Client makes good eye contact. Client's voice has mostly normal rate and is somewhat soft. Client mumbles at times in conversation. Client has appropriate affect. 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 Client denies delusions/hallucinations. Client denies SI. Suicide Assessment Suicidal Ideation Are you currently or have you been suicidal in the past?: Yes Suicidal Intentional Rating Scale (SIRS): Suicidal thoughts (past) Physician Notification Past Psychiatric History MH Treatment Hx Past Psychiatric Medications:: Zoloft, Seroquel, Valium Fall Risk Assessment Age Age: 71 or older Mental Status Mental Status: Willing & able to ask for assistance when needed Physical Status Physical Status: No problems Impairments Impairments: None Elimination Elimination: Continent AND independent Gait or Balance Gait or Balance: Walks independently Hx of Falls History of falls in the past 6 months: No known history Medications/Substances Psychotropics:: Mood stabilizers Medications/substances used within the past 24 hours or ordered to administer: 1-2 of the medications/substances listed above Total Score Total Points:: 3 RN Summary of Impressions Impressions Recommendations Impressions: Psychiatric Issues: Bipolar 1 disorder, Generalized Anxiety Disorder Level of Care How do the client's current symptoms and functional deficits support need for this level of care?: Client was in IOP in August 2021 and returns at this time To try to get this karolina under control, he states. Client was recently started on [place] by his PCP for bipolar. Family has been concerned with his behavior at home (decreased sleep, excessive talking, increased impulsivity). Client states If someone asks me for money, I will just hand them some. Client denies SI. IOP will promote gains and prevent further decompensation while providing social support and skills training.
--- NOTE | 2024-01-13 10:10 | BH.SGPN.GN ---
Behaviors/Verbalizations/Mental Status: [] Eye contact is good. Motor activity is appropriate. Appearance is casual. Speech is Appropriate. Mood is anxious. Affect is congruent. Thoughts are linear and logical. No evidence of psychosis. Client Response/Progress/Benefit: [] Pt did not participate during group discussions. Attentive during interactive discussion on defining what a boundary is in mental health. Attentive as peers identified challenges to setting boundaries which included; people pleasing, fear of rejection, fear of loss, fear people won't respect the boundary, etc. Attentive as peers identified the benefits to setting boundaries such as reduces assumptions, can reduce stress, improve communication/relationships, and can keep us safe. Attentive during psychoeducation on types of boundaries (rigid, porous, flexible). Pt benefited from increased awareness and insight on the importance/benefit to setting health boundaries. Will continue in IOP to stabilize mood, increase healthy coping, and improve functioning. Narrative Note: []
[2024-01-13 10:22] VITALS: BP 139/77; PULSE 73
--- NOTE | 2024-01-13 11:05 | BH.SGPN.GN ---
Behaviors/Verbalizations/Mental Status: []Eye contact is good. Motor activity is appropriate. Appearance is casual. Speech is Appropriate. Mood is depressed. Affect is flat. Thoughts are linear and logical. No evidence of psychosis. Client Response/Progress/Benefit: []Pt responded well to session AEB listening attentively to peers and taking notes throughout. Reports connecting most with porous boundaries, especially with material things. Participated in group discussion brainstorming various strategies for improving healthy boundary setting. Pt reports wanting to practice the ?24-hour rule? before saying yes to someone. Seemed to benefit from increased awareness of how different boundary styles can impact mental health. Will continue IOP tx to prevent decompensation, improve daily functioning, and monitor medications. Narrative Note: []
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
--- NOTE | 2024-01-13 12:51 | BH.DR.ITP ---
Initial Treatment Plan Patient Information Visit Information: ADMISSION DATE: EXPECTED LOS: 4-6 weeks Problems/Symptoms Problem #1:: Mood instability Symptom:: Recent depression about a month ago Symptom:: Symptoms of karolina or hypomania in recent weeks which included cheondoism preoccupation, increased spending, grandiosity, increased talking, impulsivity, decreased sleep with high energy, rapid thoughts Problem #2:: Anxiety Symptom:: Worry, rumination
--- NOTE | 2024-01-14 09:00 | BH.SGPN.GN ---
Behaviors/Verbalizations/Mental Status: [] Eye contact is good. Motor activity is appropriate. Appearance is casual. Speech is Appropriate. Mood is depressed. Affect is congruent. Thoughts are linear and logical. No evidence of psychosis. Reviewed daily check in sheet and no reports of suicidal ideations or intent. Client Response/Progress/Benefit: [] Pt participated when prompted. Attentive. Pt states ? I feel better?. Reports benefiting from group support and listening to his family. Pt experienced manic episode for the past several weeks and believes that he is stabilizing. Progress noted. Benefited from group support, encouragement, and feedback. Will continue in IOP to prevent decompensation, stabilize mood, and??increase healthy strategies to manage Bipolar.? Narrative Note: []
--- NOTE | 2024-01-14 10:15 | BH.SGPN.GN ---
Behaviors/Verbalizations/Mental Status: [] Pt alert and oriented, appropriate grooming/appearance. Eye contact good. Motor activity appropriate. Speech within normal limits. Affect congruent, mood content. Thoughts linear, logical, no signs of hallucinations or delusions. Client Response/Progress/Benefit: [] Pt was an active participant in group discussions. Attentive during psychoeducation. Contributed during interactive discussions in which peers attempted to define crisis. Group identified examples of potential crisis. Group also worked together to identify unhealthy responses to crisis which included lashing out, isolation, self-harm, and distraction. Pt identified personal warning signs for crisis as isolating and loss of interest. Benefited from increased understanding of crisis and awareness of personal responses to crisis. Pt will continue IOP tx to increase functioning and prevent decompensation. Narrative Note: []
--- NOTE | 2024-01-14 11:10 | BH.MDN_ITS ---
Multi-Disciplinary Note Note 45-min Individual: Time Started:: 11:10 Date: 01/14/24 Purpose of session/treatment goals addressed:: Reviewed progress and current symptoms. Addressed treatment goal 1; obj1 (Bipolar Education). Eye Contact:: Good Motor Activity:: Appropriate Appearance:: Casual Speech:: Soft Mood:: Anxious Affect:: Congruent Thoughts:: Linear, Logical and No evidence of hallucinations/delusions noted Staff Interventions:: psychoeducation on: (Bipolar, karolina, ) and rapport building Client Response:: Pt reports he is feeling better. He wishes to learn more about Bipolar, manic episodes, what causes Bipolar, and how to manage Bipolar. Engaged and asked questions as therapist discussed criteria for Bipolar and manic episodes. He acknowledges that he experienced elevated mood, increase energy, racing thoughts, impulsivity, rapid speech, grandiosity, impulsivity, poor judgment, and increased socialization during recent manic attacks. Able to see connections between his actions and karolina. He struggles with mental health stigma often asking if he can will karolina away. Has a perspective that he should be able to stop the karolina from happening through certain skills. Therapist used analogies regarding the ineffectiveness of willing away symptoms related to cancer, diabetes, and Parkinson's focusing more on management of karolina and depressive episodes through awareness, medications, proper sleep, avoiding stimulating environments, avoiding excessive caffeine, stress management, and mood tracking. Worked on acceptance rather and managing through the karolina to cause limited impact. Risks/Concerns:: No risks or concerns noted. Progress Toward Goals/Plan:: Progress noted. Responded well to education AEB asking questions. Pt has been consistent in IOP, however limited engagement. He will briefly talk in process group, however does not talk in psychoeducation groups and does not complete group tasks/assignment. Staff believe he may struggle with hearing. Pt admits that he is not interested in group noting they are repetitive (pt was in IOP 2 years ago). We discussed decreasing his IOP days to 2 a week. Will focus on individual sessions to increase education, skills, and develop a plan geared towards identifying early warning signs to karolina. He is agreeable to attending IOP next week. We will evaluate progress next week. Pt is compliant however is honest that he does not wish to be in IOP for much longer. At this point his mood presents as stable with no overt karolina. He declined any further medication interventions by program psychiatrist. He has been compliant with [place] for 2 weeks. Will reach out to next week to discuss family's concerns. Time Stopped:: 11:50
--- NOTE | 2024-01-19 09:00 | BH.SGPN.GN ---
Behaviors/Verbalizations/Mental Status: [] Pt alert and oriented, neatly dressed and groomed. Eye contact good. Motor activity appropriate. Speech within normal limits. Affect congruent, mood euthymic. Thoughts linear, logical, no signs of hallucinations or delusions. Reviewed pt?s symptom tracker, no risk for suicidal ideation, plan, or intent 01/19/24 Client Response/Progress/Benefit: []Pt was an active participant in group discussions. Attentive. Able to identify mental health wins including being at IOP today and thinking positive all the time. Pt shared when he has negative thoughts pt tries to get them out of my head. Pt's stressor today is that he wants to exercise more, but he has been struggling to get back into it. Pt stated he is feeling stable this morning. Pt receptive to feedback from peers which pt reported was helpful. Progress noted. Benefited from group support, encouragement, and feedback. Will continue in IOP to promote mood stability, increase self-awareness, and gain healthy coping skills. Narrative Note: []
--- NOTE | 2024-01-19 10:15 | BH.SGPN.GN ---
Behaviors/Verbalizations/Mental Status: []Pt alert and oriented, casually dressed and groomed. Eye contact good. Motor activity appropriate. Speech within normal limits. Affect congruent, mood content. Thoughts linear, logical, no signs of hallucinations or delusions. ? Client Response/Progress/Benefit: []Pt responded well to session, attentive and engaged. Pt participated in activity where pts had to guess the celebrity with a known mental health diagnosis and this led to discussion on self-stigma. Group participated in the discussion defining stigma as well as what stigma has kept pt's from doing in their lives. Pt stated mental health stigma has led pt to not reach out for help. Pt admits that he assumes others will not understand. Pt worked with peers to begin discussion of what reinforces stigma and this was discussed further in the next group. Pt appeared to benefit from learning about the different types of stigma as well as gaining awareness of how stigma has personally impacted pt. Pt will continue IOP tx to promote mood stability, increase use of healthy coping skills, and prevent decompensation. Narrative Note: []
--- NOTE | 2024-01-19 11:00 | BH.MDN ---
Multi-Disciplinary Note Note 45-min Individual: Time Started:: 11:00 Date: 01/19/24 Purpose of session/treatment goals addressed:: Utilized the session to develop a Bipolar Management plan which included warning signs to karolina, strategies to prevent karolina, daily healthy routine, and coping skills. Eye Contact:: Good Motor Activity:: Appropriate Appearance:: Casual Speech:: Appropriate Mood:: Anxious Affect:: Congruent Thoughts:: Linear, Logical and No evidence of hallucinations/delusions noted Staff Interventions:: psychoeducation on: (Bipolar) and other (developed bipolar management plan. ) Client Response:: Pt continues to report feeling better. Denies any significant mental health distress. No overt signs of karolina or hypomania witnessed by [facility] staff. Increased mood stability since entering [facility]. He read psychoeducation on Bipolar provided to him during last session. I didn't think I had Bipolar but it sure seems like I do. Currently agreeable and accepting of the diagnosis based on past actions. He wants to know how to stop karolina from happening through will power and positive thinking. Therapist has been challenging this perspective and instead we have focused on identifying warning signs (i.e. mood tracking) and strategies to prevent karolina (healthy routines, medication compliance, avoidance of stimulants, decreasing stress, etc.). Pt identified warning signs to karolina which included spending money, desire for money, talking to strangers, preaching to others, lack of sleep, talking to people in [place] about businesses opportunities and charities, talking to people in [place] at all hours of the night, and being too generous (offering to co-sign loans and pay for stranger's college). We also reviewed and discussed developing daily routine. Gave pt a mood tracker to maintain which included Likert scales for energy, depression/karolina, sociability, sleep, and med compliance. Risks/Concerns:: No risks or concerns noted. Denies SI. Progress Toward Goals/Plan:: Progress noted as pt and staff note mood stability for the past 2 weeks. No overt signs of karolina. Pt feels that he is good and does not wish to continue in [facility] as he is much better. He is grateful for the education on Bipolar and the development of Bipolar management plan stating this is all that I need and I can take it from here. Plan to discharge him from [facility] on 01/21/24 at his request. MORENITA signed for his and call placed to ensure stability at home. Time Stopped:: 11:45
--- NOTE | 2024-01-21 09:00 | BH.SGPN.GN ---
Behaviors/Verbalizations/Mental Status: []Pt alert and oriented, neatly dressed and groomed. Eye contact fair. Motor activity appropriate. Speech within normal limits. Affect congruent, mood calm. Thoughts linear, logical, no signs of hallucinations or delusions. Reviewed pt?s symptom tracker, no risk for suicidal ideation, plan, or intent 01/21/24 Client Response/Progress/Benefit: []Pt was an active participant in group discussions. Attentive. Able to identify mental health wins including continuing to try and think positive and getting peer connection in group. Pt's stressor today is that he and his have to fly to [place] because someone in the family is in the ICU. Pt stated pt is feeling mixed this morning due to recent family stress. Pt receptive to feedback from peers which pt reported was helpful. Progress noted. Benefited from group support, encouragement, and feedback. Will continue in IOP promote mood stability and increase social support. Narrative Note: []
--- NOTE | 2024-01-21 10:10 | BH.SGPN.GN ---
Behaviors/Verbalizations/Mental Status: [] Eye contact is good. Motor activity is appropriate. Appearance is casual. Speech is Appropriate. Mood is content. Affect is congruent. Thoughts are linear and logical. No evidence of psychosis. Client Response/Progress/Benefit: [] Pt receptive of session, AEB taking notes. Appeared to connect with group topic of automatic thoughts and cognitive distortions, as well as the impact of thought patterns on mental health, coping behaviors, and relationships. This particular group is very heavy on psychoeducation and pt appeared to connect with distortions and how they can impact functioning. Client being discharged from program today. Narrative Note: []
--- NOTE | 2024-01-21 11:10 | BH.MDN ---
Multi-Disciplinary Note Note 30-min Individual: Time Started:: 11:10 Date: 01/21/24 Purpose of session/treatment goals addressed:: Reviewed treatment goals progress and outcome scores. Discharge planning. Eye Contact:: Good Motor Activity:: Appropriate Appearance:: Casual Speech:: Appropriate Mood:: Euthymic Affect:: Full Thoughts:: Linear, Logical and No evidence of hallucinations/delusions noted Staff Interventions:: discharge planning and reviewed DSM-5 Client Response:: Pt had requested to be discharged from IOP today. Compliant with medications. Utilized the session to review pt's written Bipolar management plan which included early warning signs as well strategies to prevent karolina (regular sleep schedule, limited caffeine use, etc.). Plan was printed out and given to pt for future use. He feels confident that with increased knowledge and plan his progress is better. Also given local resources for senior at his request. He feels that he has maximized his benefit from IOP. Risks/Concerns:: No risk or concerns noted. Progress Toward Goals/Plan:: He reports feeling stable for the past couple weeks. Staff have not identified any hypomanic or manic episodes since admission. Hypomania noted during pre-admission intake on 12/30/23 (poor sleep, grandiose thoughts, impulsivity, irrational thoughts) however none of these symptoms have been reported or witnessed since starting IOP. Pt was started on mood stabilizer a week previous to pre-admission intake and appears to have responded well. He denies any distress. Outcomes show a 3 out of possible 8 on the karolina domain which has shown no decompensation since starting IOP. Scores also note a 50% improvement in the sleep domain. Depression scores have decreased 50%. Overall outcomes scores have remained the same with no noted decompensation. Pt believes that he has maximized his benefit from IOP. Therapist reached out to pt's to obtain collateral however she did not return calls. Outcome scores indicate decreased depression, no decompensation in karolina, however anxiety score did slightly increase. Since this was only pt's second week in the program he had limited time to learn skills for anxiety management nor did he complete treatment plan goals for anxiety. Encouraged pt to follow up with psychiatry and counseling, however he declines. He does not wish to be linked to mental health professionals instead preferring to follow-up with PCP. Time Stopped:: 11:40
--- NOTE | 2024-01-21 12:02 | BH.DS_ITS ---
Discharge Summary Demographics Discharge Date: 01/21/24 Presenting Problems at Admission:: Pt is a 83 year old male. Hx of Bipolar I disorder, most recent episode manic and Generalized Anxiety Disorder. No previous psychiatric admissions. Pt completed IOP at [facility] in 06/2021 due to manic episode. At the time he was started on medications however has since stopped taking them. Referred to [facility] again by PCP due to recent manic episode which included lack of sleep, excessive talking, and impulsivity. During the manic episode he was sleeping 2 hours a night, requesting $100,000 from his family for irritational ideas, offered to co-sign a loan for a stranger, and offered to pay for college tuition for a stranger. 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 Pt was started on mood stabilizer around 12/17/23 with moderate improvement, however during pre-admission screening was still impulsive, religiously pre- occupied, exhibited rapid speech, and had irrational thoughts. Denies suicidal ideations, plan, or intent. No hx of attempts. Hx of non-compliance with medications and resistance to Bipolar diagnosis. Supportive family. Discharge Diagnoses:: 1. Bipolar 1 disorder, most recent episode manic, m oderate (F31.12) 2. Generalized anxiety disorder Reason for Discharge:: Pt requested to be discharged from [facility] believing that he has maximized his benefit. I'm feeling stable and I don't need it. Progress noted as pt and staff note mood stability for the past 2 weeks. No overt signs of karolina. Treatment Progress During Treatment & Response: Consistent attendance however limited engagement in group. Appeared attentive. Medication compliant per pt report. He reports feeling stable for the past couple weeks. Staff have not identified any hypomanic or manic episodes since admission. Hypomania noted during pre- admission intake on 12/30/23 (poor sleep, grandiose thoughts, impulsivity, irrational thoughts) however none of these symptoms have been reported or witnessed since starting IOP. Pt was started on mood stabilizer a week previous to pre-admission intake and appears to have responded well. He denies any distress. Outcomes show a 3 out of possible 8 on the karolina domain which has shown no decompensation since starting IOP. Scores also note a 50% improvement in the sleep domain. Depression scores have decreased 50%. Overall outcomes scores have remained the same with no noted decompensation. Pt believes that he has maximized his benefit from IOP. Therapist reached out to pt's to obtain collateral however she did not return calls. Outcome scores indicate decreased depression, no decompensation in karolina, however anxiety score did slightly increase. Since this was only pt's second week in the program he had limited time to learn skills for anxiety management nor did he complete treatment plan goals for anxiety. Pt did complete written Bipolar management plan which included early warning s igns as well strategies to prevent karolina (regular sleep schedule, limited caffeine use, etc.). Plan was printed out and given to pt for future use. He feels confident that with increased knowledge and plan his progress is better. Also given local resources for senior at his request. Issues Still to be Addressed:: Anxiety, Depression, mood stability, guilt, and ruminations. Discharge Recommendations/Instructions:: Encouraged pt to follow up with psychiatry and counseling, however he declines. He does not wish to be linked to mental health professionals instead preferring to follow-up with PCP. Program psychiatrist had made medication recommendations however pt refused any additional medications or to increase his [place]. Discharge Handout
== END 2024-01-21 12:01 | disposition home or self-care (01) ==
LOC: BHIOP 08:00
PROVIDERS: PCP Internal Medicine; Referring Provider Psychiatry & Neurology Psychiatry; Visit Provider Psychiatry & Neurology Psychiatry
DX: F31.12 Bipolar disorder, current episode manic without psychotic features, moderate (principal); F41.1 Generalized anxiety disorder; Z79.899 Other long term (current) drug therapy
CPT/HCPCS: S9480; 90832; 90834; 90837; 90853

== ENCOUNTER → 2024-11-22 | Outpatient (CLI) | payer MEDICARE, SELFPAY ==
--- NOTE | 2024-11-22 10:08 | ST.MBS ---
Modified Barium Swallow Patient Information Study Date: 11/22/24 Study Time: 09:35 Direct Billable Minutes: 101 Total Minutes procedure & reportin Diagnosis: Dysphagia R13.10 Referring Physician: Ana Tello Reason for Referral: Per pt report, he was referred for MBSS by his PCP for concerns for swallowing difficulty w/ nausea and vomiting ~4X/month. He reports vomiting both digested and undigested foods. Sour foods make him the most nauseous. He denies coughing or throat clearing, but reports need for liquid wash as he is concerned food might become caught. Of note, he also reports gradual voice slip box changer the past few months w/ his voice becoming softer and lower. He denies odynophagia, hx of PNA, or any known GI diagnoses. Medical History: Medical History Atherosclerosis of coronary artery of [place] heart without angina pectoris SOB (shortness of breath) Tic disorder Generalized anxiety disorder Bipolar 1 disorder Age-related cognitive decline Diabetes MGUS (monoclonal gammopathy of unknown significance) Controlled diabetes mellitus Hearing loss Vitamin D deficiency Hyperlipidemia Anxiety Macular degeneration Carotid artery disease Surgical History History of cataract removal with insertion of prosthetic lens Current Diet Ordered: Regular textures / thin liquids Dentition: WNL and Natural Teeth Mental Status: Impaired (Age-related cognitive decline per EMR; did not impact exam, but pt did require repetition for instruction of how much barium to take each trial) Respiratory Status: Oxygenating on Room Air Penetration-Aspiration Scale Penetration-Aspiration Scale: OBJECTIVE ASSESSMENT OF SWALLOW FUNCTION (QUANTITATIVE ? PER TRIAL): PENETRATION / ASPIRATION SCALE (GODOY): 1 = does not enter airway 2 = enters airway/above vocal folds/ejected 3 = enters airway/above vocal folds/not ejected 4 = enters airway/contacts vocal folds/ejected 5 = enters airway/contacts vocal folds/not ejected 6 = enters airway/below vocal folds/ejected 7 = enters airway/below vocal folds/not ejected despite effort 8 = enters airway/below vocal folds/no effort VIDEOFLOROSCOPIC SCALE SCORE (GODOY): Grade I = aspiration of material that has penetrated into the laryngeal vestibule, intact cough reflex Grade II = aspiration < 10 % of the bolus, intact cough reflex Grade III = aspiration of < 10 % of the bolus, reduced cough reflex or aspiration of > 10 % of the bolus, intact cough reflex Grade IV = aspiration of > 10 % of the bolus, reduced cough reflex Penetration-Aspiration Scale Score Thin Liquid via teaspoon: Result: 1= does not enter airway Thin Liquid via teaspoon Trial 2: Result: 1= does not enter airway Thin Liquid via large single sip: cup: Result: 2= enter airway/above vocal folds/ejected Thin Liquid via sequential sips: cup: Result: 1= does not enter airway Comment: Esophageal screen - Complete clearance. [place] Thick Liquid via large single sip: cup: Result: 1= does not enter airway Pudding via teaspoon: Result: 1= does not enter airway Comment: Esophageal screen - Retention of pudding in the middle and lower esophagus. 1/2 Cookie: Result: 1= does not enter airway Comment: Esophageal screen - Retention of cookie in the middle and lower esophagus w/ min retrograde flow. Thin Liquid via sequential sips:straw: Result: 2= enter airway/above vocal folds/ejected Comment: Esophageal screen - Liquid wash fully cleared previous trials from the esophagus. Minimal retention of liquids w/ retrograde flow. Two additional liquid trials were completed in A-P view to better visualize esophageal diverticulum. Oral Phase Labial Seal: No Labial Escape Tongue Control During Bolus Hold: Cohesive bolus between tongue to palatal seal Bolus Preparation/Mastication: Timely and efficient chewing and mashing Bolus Transport/Lingual Motion: Brisk tongue motion Oral Residue: Residue collection on oral structures Pharyngeal Phase Initiation of Pharyngeal Swallow: Bolus head in valleculae Soft Palate Elevation: Trace column of contrast/air between soft palate and pharyngeal wall Laryngeal Elevation: Comp. Superior move thyroid cart w/comp. apprx arytenoid cart-epig pet Anterior Hyoid Excursion: Partial anterior movement Epiglottic Movement: Complete inversion Laryngeal Vestibule Closure at Height of Swallow: Incomplete; narrow column of air/contrast in laryngeal vestibule (trace laryngeal penetration w/ complete ejection) Pharyngeal Stripping Wave: Present - complete Pharyngoesophageal Segment Opening: Complete distension and complete duration; no obstruction of flow Tongue Base Retraction: Trace column of contrast between tongue base & post. pharyngeal wall Pharyngeal Residue: Trace residue within or on pharyngeal structures Esophageal Phase Esophageal Clearance: Esophageal retention w/ retrograde flow below pharyngoesophageal seg. Diagnosis/Impression Diagnosis: Oropharyngeal swallow function grossly WNL; Esophageal dysphagia R13.12 .: Image 1. L sided esophageal diverticulum at the level of T2, A-P view. Image 2. Again, esophageal diverticulum, lateral view. MBS Impressions: Oropharyngeal swallow function grossly WNL. The esophageal phase is primarily marked by... 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 -Esophageal retention of pudding in the middle and lower esophagus. -Esophageal retention of cookie in the middle and lower esophagus w/ min retrograde flow, which mostly cleared w/ liquid washes. -Reviewed pouch-like collection of barium w/ radiologist, Dr. Kenny, who confirmed the patient has a L sided esophageal diverticulum at the level of T2. Retention of liquid and pudding barium in the diverticulum after the swallow. Recommendations Diet: Regular Textures and Thin Liquids Compensatory Strategies: Small Bites, Small Sips, Slow Rate, Alternate bites/solids and sips/liquids (Take a sip after every 1-2 bites) and Sitting upright (During and 30-60min after meal) Recommend Repeat Modified Barium Swallow: No Need for Skilled Speech Therapy Services: No Recommended Referrals: GI Consult (Esophageal retention of pudding and cookie. L sided esophageal diverticulum at the level of T2. Pt is safe for participation in esophagram if recommended by PCP or GI.) Education Completed: 1. Described result of evaluation. Status Active ST Patient: Active Contact Information [facility] Speech Therapy:: Gisela See M.A. [facility]? Speech-Language Pathologist?? [facility] [address] [place] [address]? [email or web address]?? [phone]
== END | disposition home or self-care (01) ==
LOC: RAD 09:25
PROVIDERS: PCP Internal Medicine; Referring Provider Internal Medicine; Visit Provider Internal Medicine
DX: R13.10 Dysphagia, unspecified (principal)
CPT/HCPCS: 74230; 92611

== ENCOUNTER 2025-01-27 12:00 | Outpatient (RCR) | payer MEDICARE, SELFPAY ==
--- NOTE | 2024-09-06 09:37 | HP.PTEVAL_ITS ---
Patient's Visit Information Visit Information Visit Information: CASSIE CHAVIRA (JIM) is a 84 year old M referred to Physical Therapy by Dr. Ana Tello MD with a diagnosis of UNSTEADY GAIT ,FALLS. Date of Evaluation: 09/06/24 Physical Therapist: Zach Hodges, PT, Cert MDT, OCS Visit Plan Frequency: 2x /Week Duration: 4 Weeks Plan: PT INTERVENTIONS HIGH LEVEL BALANCE PROGRAM ,FUNCTIONAL STRENGTHENING ,LE FLEXABILITY ,BLE STRENGTHENING AND AEROBIC EX'S Subjective Subjective: This 84 y/o male presents to physical therapy with unsteady gait. Patient seen DR routine visits discussed with DR about weakness in legs caused balance problems. Patient had last fall June descending stairs. Patient uses no device. Patient denies dizziness/nausea/tinnitus. C/O weakness in legs.Patient sleeping good. Denies pain. Denies paresthesia/tingling. Patient does one step at time. Patient difficulty with squatting and kneeling. Patient works out 1- 3 days /week . Patient has 2 story home bed/bath 2st floor. Patient condition affects QOL/function. SOCIAL: VOCATION: retired Objective Objective: POSTURE: mild forward posture GAIT: reciprocal pattern NEURO: denies paresthesia/tingling ,reflexes 1/3 PROPRIOCEPTION: SLS unable w/o support ( poor) FLEXABILITY: hamstrings mod tight MMT: quads/hams 4/5 ,hip flexion 4/5 ,hip abd 4-/5 ,ankle 4/5 STAIRS: alternating with rails Balance/Special Test Scores Functional Gait Assessment Score: 23 % Disability: 23.3400 CATSIB Score (Max score 120 seconds): 120 Lower Extremity Functional Score: 45 30 Second Chair Rise Test Seconds: 10 Goals Goal 1:: Patient to be I with HEP for balance Goal Time Frame: 4-6 Weeks Goal 2:: Patient to improve 30sec sit-stand by 3-5 reps to improve functional strength Goal Time Frame: 4-6 Weeks Goal 3:: Patient to improve functional gait assessment score by 5 points to improve gait Goal Time Frame: 4-6 Weeks Goal 4:: Patient to improve ability to SLS 5-10 seconds to improve balance Goal Time Frame: 4-6 Weeks Goal 5:: Patient to improve LFES score by 5 points to improve QOL Goal Time Frame: 4-6 Weeks Rehabilitation Potential Physical Therapy Diagnosis: This patient has generalized functional weakness with decrease high level balance impairments with unable SLS ,and decrease functional gait assessment thus benefit from skilled PT Rehabilitation Potential: Good Anticipated Interventions Patient/Client Instruction: Educate patient on: Condition and Plan of Care For the Purpose of:: To improve muscle performance and motor function, To improve ability to perform ADL's, To increase tolerance to activity/condition/position, To improve ability of physical actions for home/community/work/leisure, To improve endurance and To improve balance Therapeutic Exercise to Include: Strength training, Power training, Endurance training, Balance training, Flexibilty training and Gait and locomotor training Comment: BLE For the Purpose of:: To improve muscle performance and motor function, To increase tolerance to activity/condition/position, To improve ability of phys ical actions for home/community/work/leisure, To improve gait and locomotor functions, To improve endurance and To improve balance Text: Thank you for the opportunity to evaluate your patient. For Medicare and Medicare HMO plans, please review the plan of care and approve it. It will need to be FAXED BACK to us at [phone] for Medicare purposes. For Medicare only, by signing this I certify the plan of care. Please let me know if there are questions or concerns regarding this plan of care. Physician Signature: Date:
--- NOTE | 2024-11-09 10:24 | HP.PTREVAL ---
Re-Evaluation Intro: Dr. Ana Tello MD, It has been my pleasure to treat CASSIE CHAVIRA over the last 7 visits for UNSTEADY GAIT ,FALLS. Please see the progress note below for an update on the physical therapy plan of care! Subjective Subjective: PT is helping with balance Getting slowly stronger Objective Objective/Function: POSTURE: mild forward posture GAIT: reciprocal pattern NEURO: denies paresthesia/tingling ,reflexes 1/3 PROPRIOCEPTION: SLS unable w/o support ( poor) FLEXABILITY: hamstrings mod tight MMT: quads/hams 4/5 ,hip flexion 4/5 ,hip abd 4-/5 ,ankle 4/5 STAIRS: alternating with rails Plan Plan Plan: PT INTERVENTIONS HIGH LEVEL BALANCE PROGRAM ,FUNCTIONAL STRENGTHENING ,LE FLEXABILITY ,BLE STRENGTHENING AND AEROBIC EX'S Balance/Gait/Functional tests Balance/Special Test Scores Functional Gait Assessment Score: 29 % Disability: 3.3400 CATSIB Score (Max score 120 seconds): 120 Lower Extremity Functional Score: 45 30 Second Chair Rise Test Seconds: 12 Goals Goals Goal 1:: Patient to be I with HEP for balance Goal Time Frame: 4-6 Weeks Goal Progress: Progressing Goal 2:: Patient to improve 30sec sit-stand by 3-5 reps to improve functional strength Goal Time Frame: 4-6 Weeks Goal Progress: Progressing Goal 3:: Patient to improve functional gait assessment score by 5 points to improve gait Goal Time Frame: 4-6 Weeks Goal Progress: Goal Met Goal 4:: Patient to improve ability to SLS 5-10 seconds to improve balance Goal Time Frame: 4-6 Weeks Goal Progress: Progressing Goal 5:: Patient to improve LFES score by 5 points to improve QOL Goal Time Frame: 4-6 Weeks Goal Progress: Progressing Anticipated Interventions Anticipated Interventions Patient/Client Instruction: Educate patient on: Condition and Plan of Care For the Purpose of:: To improve muscle performance and motor function, To improve ability to perform ADL's, To increase tolerance to activity/condition/position, To improve ability of physical actions for home/community/work/leisure, To improve endurance and To improve balance Therapeutic Exercise to Include: Strength training, Power training, Endurance training, Balance training, Flexibilty training and Gait and locomotor training Comment: BLE For the Purpose of:: To improve muscle performance and motor function, To increase tolerance to activity/condition/position, To improve ability of physical actions for home/community/work/leisure, To improve gait and locomotor functions, To improve endurance and To improve balance Re-Evaluation Ending Re-evaluation ending: Please do not hesitate to contact me at [phone] by phone or if you have questions or concerns regarding this new plan of care! Sincerely, Zach Hodges, PT, Cert MDT, OCS
--- NOTE | 2024-12-30 10:02 | HP.PTREVAL ---
Re-Evaluation Intro: Dr. Ana Tello MD, It has been my pleasure to treat CASSIE CHAVIRA over the last 19 visits for UNSTEADY GAIT ,FALLS. Please see the progress note below for an update on the physical therapy plan of care! Subjective Subjective: Seen DR Tello last week recommended continue with PT Happy with progress ascending/descending stairs -Fell on time with quick movement when turning Objective Objective/Function: POSTURE: mild forward posture GAIT: reciprocal pattern NEURO: denies paresthesia/tingling ,reflexes 1/3 PROPRIOCEPTION: SLS unable w/o support ( poor) FLEXABILITY: hamstrings mod tight MMT: quads/hams 4/5 ,hip flexion 4/5 ,hip abd 4-/5 ,ankle 4/5 STAIRS: alternating with rails Plan Plan Plan: Requesting 8 more visits PT INTERVENTIONS HIGH LEVEL BALANCE PROGRAM ,FUNCTIONAL STRENGTHENING ,LE FLEXABILITY ,BLE STRENGTHENING AND AEROBIC EX'S Balance/Gait/Functional tests Balance/Special Test Scores Functional Gait Assessment Score: 29 % Disability: 3.3400 CATSIB Score (Max score 120 seconds): 120 Lower Extremity Functional Score: 47 30 Second Chair Rise Test Seconds: 11 Goals Goals Goal 1:: Patient to be I with HEP for balance Goal Time Frame: 4-6 Weeks Goal Progress: Progressing Goal 2:: Patient to improve 30sec sit-stand by 3-5 reps to improve functional strength Goal Time Frame: 4-6 Weeks Goal Progress: Progressing Goal 3:: Patient to improve functional gait assessment score by 5 points to improve gait Goal Time Frame: 4-6 Weeks Goal Progress: Goal Met Goal 4:: Patient to improve ability to SLS 5-10 seconds to improve balance Goal Time Frame: 4-6 Weeks Goal Progress: Progressing Goal 5:: Patient to improve LFES score by 5 points to improve QOL Goal Time Frame: 4-6 Weeks Goal Progress: Progressing Anticipated Interventions Anticipated Interventions Patient/Client Instruction: Educate patient on: Condition and Plan of Care For the Purpose of:: To improve muscle performance and motor function, To improve ability to perform ADL's, To increase tolerance to activity/condition/position, To improve ability of physical actions for home/community/work/leisure, To improve endurance and To improve balance Therapeutic Exercise to Include: Strength training, Power training, Endurance training, Balance training, Flexibilty training and Gait and locomotor training Comment: BLE For the Purpose of:: To improve muscle performance and motor function, To increase tolerance to activity/condition/position, To improve ability of physical actions for home/community/work/leisure, To improve gait and locomotor functions, To improve endurance and To improve balance Re-Evaluation Ending Re-evaluation ending: Please do not hesitate to contact me at [phone] by phone or if you have questions or concerns regarding this new plan of care! Sincerely, Zach Hodges, PT, Cert MDT, OCS
== END 2025-01-27 19:00 | disposition home or self-care (01) ==
LOC: PT 12:00
PROVIDERS: PCP Internal Medicine; Referring Provider Internal Medicine; Visit Provider Internal Medicine
DX: R26.81 Unsteadiness on feet (principal); R29.6 Repeated falls
CPT/HCPCS: 97110; 97162; 97530